=== PATIENT | male | born 1940 | race Caucasian/White ===

== ENCOUNTER 2017-09-07 11:18 | Emergency (ER) | payer OTHER ==
--- OUTSIDE RECORDS SUMMARY | 2017-09-07 11:20 | XMS REPORT ---
:1940 [email or web address] Care Team Providers Name Role Phone Corazon Dickey Provider Role Unavailable Allergies, Adverse Reactions, Alerts Substance Reaction Event Type N.K.D.A. Info Not Available Non Drug Allergy Problems Problem Type Condition Code Onset Dates Condition Status Assessment Skin lesions L98.9 Active Assessment Neck pain M54.2 Active Assessment Bilateral leg weakness R29.898 Active Problem Prostate disorder N42.9 Active Assessment Chronic constipation K59.09 Active Problem Hypertension, unspecified type I10 Active Assessment Chronic obstructive pulmonary J44.9 Active disease, unspecified COPD type Problem Bilateral leg weakness R29.898 Active Problem Ulcer L98.499 Active Problem Skin lesions L98.9 Active Problem Neck pain M54.2 Active Problem Seasonal allergies J30.2 Active Problem Elevated prostate specific antigen R97.2 Active (PSA) Assessment Hypertension, unspecified type I10 Active Problem Erectile dysfunction F52.21 Active Assessment Hyperlipidemia, unspecified E78.5 Active hyperlipidemia type Problem Hyperlipidemia, unspecified E78.5 Active hyperlipidemia type Problem Chronic constipation K59.09 Active Problem Sinus problem J34.9 Active Problem Chronic obstructive pulmonary J44.9 Active disease, unspecified COPD type Problem Nicotine dependence F17.200 Active Problem Spermatocele of epididymis, 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 Calcium NDC 0 500 MG Orally Active 1 tablet [place] [address]-58 200 MCG/ACT Active 1 puff Furoate Inhalation Once a day MiraLax ND 12578980882 - Orally Once a Active 1 packet day mixed with 8 ounces of fluid Simvastatin ND 01465475110 20 MG Orally Active 1 tablet Once a day in the evening Antacid ND 10736537659 500 MG Orally Active 1 tablet Once a day Low-Dose NDC 0 Active not Aspirin defined Lisinopril ND 60245982004 5 MG Orally Active 2 tablets Once a day Breo Ellipta [facility] 11672980721 200-25 MCG/INH August 22, Nov 20, Active 1 puff Inhalation Once 2017 2017 a day Ventolin HFA [facility] 85465221436 108 (90 Base) Active 2 puffs as MCG/ACT needed Inhalation every 6 hrs Linzess [facility] 43541314460 290 MCG Orally Active 1 capsule Once a day ProAir [facility] 71190706957 108 (90 Base) Active 2 puffs as RespiClick MCG/ACT needed Inhalation every 6 hrs Loratadine [facility] 98575769290 10 MG Orally Active 1 tablet Once a day Nasal [place] [facility] 07151508549 0.05 % Nasally Active 2 drops in Twice a day each nostril as needed Results No Known Results Summary Purpose eClinicalWorks Submission
[2017-09-07 12:12] LABS: Absolute Lymphocytes (CBC) 1.6 K/uL (0.7-4.9); Absolute Monocytes 0.4 K/uL (0.1-1.3); Absolute Neutrophil 2.9 K/uL (1.8-8.0); Basophils % 0.6 % (0-1.3); Eosinophils % 2.2 % (0-4.4); Hematocrit 43.7 % (39.6-49.0); Lymphocytes % 32.2 % (15.3-44.8); MCH 33.7 pg (27.0-35.0); MCV 99.4 fL (80-100); MPV 8.2 fL (7.6-11.3); Monocytes % 7.8 % (3.3-12.3)
[2017-09-07 12:29] LABS: Albumin 3.9 g/dL (3.2-5.5); Bilirubin Direct 0.2 mg/dL (0-0.2); Bilirubin Total 1.1 mg/dL (0.3-1.2); Magnesium 1.9 mg/dL (1.8-2.5); Protein, Total 7.7 g/dL (6.0-8.3)
[2017-09-07] MEDS ORDERED: ALBUTEROL 2.5 MG/3 ML NEB SOL ONE (12:29)
[2017-09-07] MEDS ORDERED: NA CHLORIDE 0.9% 1,000 ML ONE (12:29)
[2017-09-07] MEDS ORDERED: IPRATROPIUM BROM 0.5MG/2.5ML ONE (12:29)
[2017-09-07] MEDS ORDERED: METHYLPREDNISOLONE 125 MG INJ ONE (12:29)
[2017-09-07] MEDS ORDERED: Levofloxacin500mg IV 500 MG/100 ML BAG IV ONE (12:29)
--- NOTE | 2017-09-07 12:29 | RAD REPORT ---
EXAM DESCRIPTION: RAD - Chest Single View - 09/07/2017 12:11 pm CLINICAL HISTORY: Coughing blood COMPARISON: 10/24/2016 FINDINGS: Portable technique limits examination quality. Linear opacities present left lung base with mild elevated left hemidiaphragm. The lungs are grossly clear of acute infiltrate. The heart is normal in size. No displaced fractures. IMPRESSION: Subsegmental atelectasis left lung base with elevated left hemidiaphragm.
[2017-09-07] MEDS ORDERED: CEFTRIAXONE/SWI 1gm 1 GM/10 ML SYR ONE (12:30)
[2017-09-07 12:32] LABS: Protime INR 0.94
[2017-09-07 12:33] LABS: CKMB Creatine Kinase MB 3.1 ng/ml (0.3-4.0)
--- NOTE | 2017-09-07 14:00 | EDPHYS ---
Physician Documentation [facility] Name: Flakito Garcia Age: 77 yrs Sex: Male : 1940 Arrival Date: 09/07/2017 Time: 11:16 Bed 13 Private MD: ED Physician Shay Wall HPI: 09/07 13:55 This 77 yrs old Male presents to ER via EMS with complaints of Productive deandre Cough. 13:55 The patient or guardian reports cough, difficulty breathing. Onset: The deandre symptoms/episode began/occurred 1 day(s) ago. Severity of symptoms: At their worst the symptoms were moderate. Modifying factors: The symptoms are alleviated by nothing. Associated signs and symptoms: The patient has no apparent associated signs or symptoms. The patient has not experienced similar symptoms in the past. Historical: - Allergies: 11:22 No Known Allergies; aj - Home Meds: 11:22 Albuterol Inhl [Active]; budesonide inhalation [Active]; Calcium Carbonate Oral aj [Active]; cholecalciferol (vitamin D3) miscellaneous [Active]; fluticasone nasal [Active]; linaclotide Oral [Active]; lisinopril Oral [Active]; rivaroxaban Oral [Active]; - PMHx: 11:22 COPD; Hypertension; aj - PSHx: 11:22 hip - left; aj - Immunization history:: Adult Immunizations up to date. - Social history:: Smoking status: Patient/guardian denies using tobacco. - Family history:: not pertinent. ROS: 13:55 Constitutional: Negative for fever, chills, and weight loss, Eyes: Negative for injury, deander pain, redness, and discharge, ENT: Negative for injury, pain, and discharge, Neck: Negative for injury, pain, and swelling, Cardiovascular: Negative for chest pain, palpitations, and edema, Abdomen/GI: Negative for abdominal pain, nausea, vomiting, diarrhea, and constipation, Back: Negative for injury and pain, : Negative for injury, bleeding, discharge, and swelling, MS/Extremity: Negative for injury and deformity, Skin: Negative for injury, rash, and discoloration, Neuro: Negative for headache, weakness, numbness, tingling, and seizure, Psych: Negative for depression, anxiety, suicide ideation, homicidal ideation, and hallucinations, Allergy/Immunology: Negative for hives, rash, and allergies, Endocrine: Negative for neck swelling, polydipsia, polyuria, polyphagia, and marked weight changes, Hematologic/Lymphatic: Negative for swollen nodes, abnormal bleeding, and unusual bruising. 13:55 Respiratory: Positive for cough, "sounds productive". Exam: 13:56 Constitutional: This is a well developed, well nourished patient who is awake, alert, deandre and in no acute distress. Head/Face: Normocephalic, atraumatic. Eyes: Pupils equal round and reactive to light, extra-ocular motions intact. Lids and lashes normal. Conjunctiva and sclera are non-icteric and not injected. Cornea within normal limits. Periorbital areas with no swelling, redness, or edema. ENT: Nares patent. No nasal discharge, no septal abnormalities noted. Tympanic membranes are normal and external auditory canals are clear. Oropharynx with no redness, swelling, or masses, exudates, or evidence of obstruction, uvula midline. Mucous membranes moist. Neck: Trachea midline, no thyromegaly or masses palpated, and no cervical lymphadenopathy. Supple, full range of motion without nuchal rigidity, or vertebral point tenderness. No Meningismus. Chest/axilla: Normal chest wall appearance and motion. Nontender with no deformity. No lesions are appreciated. Cardiovascular: Regular rate and rhythm with a normal S1 and S2. No gallops, murmurs, or rubs. Normal PMI, no JVD. No pulse deficits. Abdomen/GI: Soft, non-tender, with normal bowel sounds. No distension or tympany. No guarding or rebound. No evidence of tenderness throughout. Back: No spinal tenderness. No costovertebral tenderness. Full range of motion. Male : Normal genitalia with no discharge or lesions. Skin: Warm, dry with normal turgor. Normal color with no rashes, no lesions, and no evidence of cellulitis. MS/ Extremity: Pulses equal, no cyanosis. Neurovascular intact. Full, normal range of motion. Neuro: Awake and alert, GCS 15, oriented to person, place, time, and situation. Cranial nerves II-XII grossly intact. Motor strength 5/5 in all extremities. Sensory grossly intact. Cerebellar exam normal. Normal gait. Psych: Awake, alert, with orientation to person, place and time. Behavior, mood, and affect are within normal limits. 13:56 Respiratory: mild respiratory distress is noted, Respirations: normal, Breath sounds: decreased breath sounds, rhonchi, that are mild. Vital Signs: 11:22 BP 170 / 100; Pulse 88; Resp 20; Temp 98.6; Pulse Ox 93% on R/A; Weight 102.06 kg; aj Height 6 ft. 6 in. (198.12 cm); 12:47 BP 154 / 94; Pulse 68; Resp 20; Pulse Ox 100% on Nebulizer Mask; aj 15:42 BP 152 / 92; Pulse 69; Resp 22; Pulse Ox 93% on R/A; aj 11:22 Body Mass Index 26.00 (102.06 kg, 198.12 cm) aj MDM: 11:39 Patient medically screened. [facility] 13:56 Data reviewed: vital signs, nurses notes, lab test result(s), EKG, radiologic studies, [facility] CT scan, plain films. 09/07 11:44 Order name: Basic Metabolic Panel [facility] 09/07 11:44 Order name: BNP; Complete Time: 13:[address] [facility] 09/07 11:44 Order name: CBC with Diff; Complete Time: 13:[address] [facility] 09/07 11:44 Order name: Ckmb; Complete Time: 13:[address] [facility] 09/07 11:44 Order name: CPK; Complete Time: 13:[address] [facility] 09/07 11:44 Order name: LFT's; Complete Time: 13:[address] [facility] 09/07 11:44 Order name: Magnesium; Complete Time: 13:[address] [facility] 09/07 11:44 Order name: PT-INR; Complete Time: 13:[address] [facility] 09/07 11:44 Order name: Ptt, Activated; Complete Time: 13:[address] [facility] 09/07 11:44 Order name: Troponin (emerg Dept Use Only); Complete Time: 13:[address] [facility] 09/07 11:44 Order name: Blood Culture Adult (2) [facility] 09/07 11:44 Order name: Procalcitonin; Complete Time: 13:[address] [facility] 09/07 11:44 Order name: Lactate; Complete Time: 13:[address] [facility] 09/07 11:44 Order name: Urine Culture [facility] 09/07 11:44 Order name: XRAY Chest (1 view); Complete Time: 13:[address] [facility] 09/07 11:44 Order name: EKG; Complete Time: 11:[address] [facility] 09/07 11:44 Order name: Cardiac monitoring; Complete Time: 12:[address] [facility] 09/07 11:44 Order name: EKG - Nurse/Tech; Complete Time: 12:[address] [facility] 09/07 11:45 Order name: Basic Metabolic Panel; Complete Time: 13:52 [facility] 09/07 13:46 Order name: CT Chest For PE Angio 09/07 14:05 Order name: CONS Physician Consult [facility] 09/07 15:04 Order name: CT [facility] 09/07 11:44 Order name: IV Saline Lock; Complete Time: 12:[address] [facility] 09/07 11:44 Order name: Labs collected and sent; Complete Time: 12:[address] [facility] 09/07 11:44 Order name: O2 Per Protocol; Complete Time: 12:[address] [facility] 09/07 11:44 Order name: O2 Sat Monitoring; Complete Time: 12:[address] [facility] Administered Medications: 12:12 CANCELLED (Inappropriate at this time): Nicotine 21 mg/24 hr 1 patches Transdermal once aj 12:44 Drug: Rocephin - (cefTRIAXone) 1 grams Route: IVPB; Infused Over: 30 mins; Site: right aj antecubital; 12:45 Drug: SOLU-Medrol 125 mg Route: IVP; Site: right antecubital; aj 13:00 Follow up: Response: No adverse reaction aj 12:45 Drug: Albuterol - atroVENT (3:1) (2.5 mg - 0.5 mg) 3 ml Route: Nebulizer; aj 13:01 Follow up: Response: No adverse reaction aj 12:45 Drug: levofloxacin 500 mg Volume: 100 ml; Route: IVPB; Infused Over: 60 mins; Site: aj right antecubital; 12:46 Drug: NS 0.9% 500 ml Route: IV; Rate: bolus; Site: right antecubital; aj 12:46 Drug: NS 0.9% 1000 ml Route: IV; Rate: 125 ml/hr; Site: right antecubital; aj 14:34 Drug: ProTONIX 40 mg Route: IVP; Site: right antecubital; aj 15:05 Follow up: Response: No adverse reaction aj Disposition: 09/07/17 13:59 Hospitalization ordered by Robert West for Inpatient Admission. Preliminary diagnosis are Chronic obstructive pulmonary disease with (acute) exacerbation, Hemoptysis. - Bed requested for Telemetry/MedSurg (Inpatient). - Status is Inpatient Admission. aj - Condition is Fair. - Problem is new. - Symptoms have improved. UTI on Admission? No Signatures: Dispatcher [employer] Josefa Yang RN Shay Loya MD MD cha Corrections: (The following items were deleted from the chart) 12:12 12:12 Nicotine Patch 21 mg/24 hr 1 patches Transdermal once ordered. aj aj 15:52 13:59 Hospitalization Ordered by Robert West DO for Inpatient Admission. Preliminary aj diagnosis is Chronic obstructive pulmonary disease with (acute) exacerbation; Hemoptysis. Bed requested for Telemetry/MedSurg (Inpatient). Status is Inpatient Admission. Condition is Fair. Problem is new. Symptoms have improved. UTI on Admission? No. denadre
--- NOTE | 2017-09-07 14:00 | ER ---
Nurse's Notes [facility] Name: Flakito Garcia Age: 77 yrs Sex: Male : 1940 Arrival Date: 09/07/2017 Time: 11:16 Bed 13 Private MD: Diagnosis: Chronic obstructive pulmonary disease with (acute) exacerbation;Hemoptysis Presentation: 09/07 11:17 Presenting complaint: Patient states: Coughing up blood since last night. Patient aj started on new COPD inhaler 3 days ago. Transition of care: patient was not received from another setting of care. Onset of symptoms was September 07, 2017. Risk Assessment: Do you want to hurt yourself or someone else? Patient reports no desire to harm self or others. Initial Sepsis Screen: Does the patient meet any 2 criteria? No. Patient's initial sepsis screen is negative. Does the patient have a suspected source of infection? No. Patient's initial sepsis screen is negative. Care prior to arrival: None. 11:17 Method Of Arrival: EMS: [facility] 11:17 Acuity: JUWAN 3 aj Triage Assessment: 11:22 General: Appears in no apparent distress. comfortable, Behavior is calm, cooperative, aj appropriate for age. Pain: Denies pain. Neuro: Level of Consciousness is awake, alert, obeys commands, Oriented to person, place, time, situation, Appropriate for age. Respiratory: Reports cough that is productive, Airway is patent Respiratory effort is even, unlabored, Respiratory pattern is regular, symmetrical, Onset: The symptoms/episode began/occurred yesterday, the patient has mild shortness of breath. Derm: Skin is intact, is healthy with good turgor, Skin is pink, warm \T\ dry. normal. Historical: - Allergies: 11:22 No Known Allergies; aj - Home Meds: 11:22 Albuterol Inhl [Active]; budesonide inhalation [Active]; Calcium Carbonate Oral aj [Active]; cholecalciferol (vitamin D3) miscellaneous [Active]; fluticasone nasal [Active]; linaclotide Oral [Active]; lisinopril Oral [Active]; rivaroxaban Oral [Active]; - PMHx: 11: COPD; Hypertension; aj - PSHx: : hip - left; aj - Immunization history:: Adult Immunizations up to date. - Social history:: Smoking status: Patient/guardian denies using tobacco. - Family history:: not pertinent. Screenin:47 Abuse screen: Denies threats or abuse. Denies injuries from another. Nutritional aj screening: No deficits noted. Tuberculosis screening: No symptoms or risk factors identified. Fall Risk None identified. Assessment: 12:49 Reassessment: see triage. aj 15:42 Reassessment: Patient requested to leave AMA. Informed of risk of . aj Vital Signs: 11:22 BP 170 / 100; Pulse 88; Resp 20; Temp 98.6; Pulse Ox 93% on R/A; Weight 102.06 kg; aj Height 6 ft. 6 in. (198.12 cm); 12:47 BP 154 / 94; Pulse 68; Resp 20; Pulse Ox 100% on Nebulizer Mask; aj 15:42 BP 152 / 92; Pulse 69; Resp 22; Pulse Ox 93% on R/A; aj 11:22 Body Mass Index 26.00 (102.06 kg, 198.12 cm) ED Course: 11:16 Patient arrived in ED. aj 11:19 Triage completed. aj 11:22 Arm band placed on left wrist. Patient placed in an exam room, on a stretcher. aj 11:39 Shay Wall MD is Attending Physician. deandre 12:09 Josefa Harper RN is Primary Nurse. aj 12:10 X-ray completed. Portable x-ray completed in exam room. Patient tolerated procedure ml well. 12:11 XRAY Chest (1 view) In Process Unspecified. EDMS 12:47 Patient has correct armband on for positive identification. aj 12:47 Inserted saline lock: 20 gauge in right antecubital area, using aseptic technique. aj Blood collected. 13:[address] 2 13:58 Robert West DO is Hospitalizing Provider. [facility] 13:59 CT completed. Patient tolerated procedure well. Patient moved back from CT. vm2 14:05 CT Chest For PE Angio In Process Unspecified. EDMS 14:[address] 14:55 CT completed. Patient tolerated procedure well. Patient moved back from CT. 15:42 No provider procedures requiring assistance completed. IV discontinued, intact, aj bleeding controlled, No redness/swelling at site. Pressure dressing applied. Administered Medications: 12:12 CANCELLED (Inappropriate at this time): Nicotine 21 mg/24 hr 1 patches Transdermal once aj 12:44 Drug: Rocephin - (cefTRIAXone) 1 grams Route: IVPB; Infused Over: 30 mins; Site: right aj antecubital; 12:45 Drug: SOLU-Medrol 125 mg Route: IVP; Site: right antecubital; aj 13:00 Follow up: Response: No adverse reaction aj 12:45 Drug: Albuterol - atroVENT (3:1) (2.5 mg - 0.5 mg) 3 ml Route: Nebulizer; aj 13:01 Follow up: Response: No adverse reaction aj 12:45 Drug: levofloxacin 500 mg Volume: 100 ml; Route: IVPB; Infused Over: 60 mins; Site: aj right antecubital; 12:46 Drug: NS 0.9% 500 ml Route: IV; Rate: bolus; Site: right antecubital; aj 12:46 Drug: NS 0.9% 1000 ml Route: IV; Rate: 125 ml/hr; Site: right antecubital; aj 14:34 Drug: ProTONIX 40 mg Route: IVP; Site: right antecubital; aj 15:05 Follow up: Response: No adverse reaction aj Outcome: 13:59 Decision to Hospitalize by Provider. deandre 15:42 AMA AMA form signed aj 15:42 unknown 15:42 Instructed on Risks of leaving AMA 15:52 Patient left the ED. aj Signatures: Dispatcher [employer] Josefa Yang RN RN aj Anderson, Corey, MD MD cha Hagler, Sky Bingham, Barbara Box [facility]
--- NOTE | 2017-09-07 14:15 | RAD REPORT ---
EXAM DESCRIPTION: CT - Chest For Pe Angio - 09/07/2017 2:04 pm CLINICAL HISTORY: Chest pain. Hemoptysis. COMPARISON: 07/16/2007 TECHNIQUE: CT angiogram of the pulmonary arteries was performed with MIP. All CT scans are performed using dose optimization technique as appropriate and may include automated exposure control or mA/KV adjustment according to patient size. FINDINGS: No evidence of pulmonary thromboembolism. No acute aortic finding demonstrated. Mild COPD is present. No focal nodule, mass or infiltrate is seen. No significant pericardial or pleural fluid. No concerning bony finding. Small hiatal hernia. IMPRESSION: No evidence of pulmonary thromboembolism. Mild diffuse COPD.
[2017-09-07] MEDS ORDERED: PANTOPRAZOLE 40 MG INJ ONE (14:28)
--- NOTE | 2017-09-07 15:03 | RAD REPORT ---
EXAM DESCRIPTION: CT - Soft Tissue Neck Wo Contr CLINICAL HISTORY: Hemoptysis. COMPARISON: None. TECHNIQUE All CT scans are performed using dose optimization technique as appropriate and may includ e automated exposure control or mA/KV adjustment according to patient size. FINDINGS: There is significant limitation to the study due to lack of IV contrast material. Nasopharyngeal airway is patent. Fossa of Rosenmuller are normal. Tongue base is grossly unremarkable . Vallecula and piriform sinuses appear well aerated. Slight asymmetry is seen involving the false co rds. No bulky adenopathy suspected in the neck. Prominent multilevel cervical degenerative changes. IMPRESSION: Limited noncontrast study is submitted without acute or aggressive neck finding delineat ed.
[2017-09-07 15:56] VITALS: TEMP 98.6
[2017-09-07 15:58] VITALS: BP 152/92; O2SAT 93
--- NOTE | 2017-09-07 17:38 | EKG ---
Test Date: 2017-09-07 Test Time: 11:53:08 Poultry Slaughterer: CRISTOBAL MEASUREMENT RESULTS: Intervals: Rate: 77 VA: 198 QRSD: 88 QT: 368 QTc: 416 [place]: P: 75 VA: 198 QRS: 45 T: 70 INTERPRETIVE STATEMENTS: Normal sinus rhythm Normal ECG Compared to ECG 10/24/2016 17:00:04 No significant changes Electronically Signed On 09-07-17 17:36:47 CDT by Nirav Rg
== END 2017-09-07 15:52 | disposition left against medical advice (07) ==
LOC: ER 11:18 → OBSVTOIN 14:02 → INTOOBSV 14:02 → ERHOLD 14:02 → UNDOADMOB 14:02 → ER 15:52 → UNDODISOB 15:52
DX: J44.1 Chronic obstructive pulmonary disease with (acute) exacerbation (principal); I10 Essential (primary) hypertension
CPT/HCPCS: 36415; 70490; 71045; 71275; 80048; 80076; 82550; 82553; 83605; 83735; 83880; 84145; 84484; 85025; 85610; 85730; 87040 ×2; 93005; 94640; 96374; 96375; 99285; C9113; G0378 ×2; J0696; J2930; J7030; Q9967

== ENCOUNTER 2017-09-08 06:17 | Emergency (ER) | payer OTHER ==
--- OUTSIDE RECORDS SUMMARY | 2017-09-08 06:20 | XMS REPORT ---
:1940 [facility] Care Team Providers Name Role Phone Corazon [...] Status Dosage System Date Date Symbicort ND 86260671876 160-4.5 MCG/ACT Active INHALE TWO (2) PUFF(S) BY MOUTH TWICE A DAY. Calcium NDC 0 500 MG Orally Active 1 tablet [place]ate [place] [address]-55 200 MCG/ACT Active 1 puff Furoate Inhalation Once a day MiraLax ND 50265527846 - Orally Once a Active 1 packet day mixed with 8 ounces of fluid Simvastatin ND 93996894951 20 MG Orally Active 1 tablet Once a day in the evening Antacid ND 12614278146 500 MG Orally Active 1 tablet Once a day Low-Dose NDC 0 Active not Aspirin defined Lisinopril ND 83029788129 5 MG Orally Active 2 tablets Once a day Breo Ellipta [facility] 27073513600 200-25 MCG/INH August 22, Nov 20, Active 1 puff Inhalation Once 2017 2017 a day Ventolin HFA [facility] 70037630326 108 (90 Base) Active 2 puffs as MCG/ACT needed Inhalation every 6 hrs Linzess [facility] 09019986888 290 MCG Orally Active 1 capsule Once a day ProAir [facility] 75238238981 108 (90 Base) Active 2 puffs as RespiClick MCG/ACT needed Inhalation every 6 hrs Loratadine [facility] 10749976963 10 MG Orally Active 1 tablet Once a day Nasal [place] [facility] 02175295273 0.05 % Nasally Active 2 drops in Twice a day each nostril as needed Results No Known Results Summary Purpose eClinicalWorks Submission
[2017-09-08 06:59] LABS: Absolute Lymphocytes (CBC) 1.4 K/uL (0.7-4.9); Absolute Monocytes 0.5 K/uL (0.1-1.3); Absolute Neutrophil 4.4 K/uL (1.8-8.0); Basophils % 0.2 % (0-1.3); Eosinophils % 0.1 % (0-4.4); Hematocrit 39.2 % (39.6-49.0); Lymphocytes % 21.8 % (15.3-44.8); MPV 7.7 fL (7.6-11.3); Monocytes % 8.5 % (3.3-12.3)
[2017-09-08 07:06] LABS: Protime INR 0.97
--- NOTE | 2017-09-08 07:35 | ER ---
Nurse's Notes [facility] Name: Flakito Garcia Age: 77 yrs Sex: Male : 1940 Arrival Date: 09/08/2017 Time: 06:23 Bed 4 Private MD: Curtis Montano R Diagnosis: Chronic obstructive pulmonary disease, unspecified;Hemoptysis Presentation: 09/08 06:18 Presenting complaint: EMS states: Patient reported feeling short of breath and started ea coughing up blood at 5:30 this AM, patient reports coming to the ER yesterday for the same issue. EMS reported pt O2 sats 84% upon arrival, pt placed on 4 L n/c. Transition of care: patient was not received from another setting of care. Onset of symptoms was September 08, 2017. Risk Assessment: Do you want to hurt yourself or someone else? Patient reports no desire to harm self or others. Initial Sepsis Screen: Does the patient meet any 2 criteria? No. Patient's initial sepsis screen is negative. Does the patient have a suspected source of infection? No. Patient's initial sepsis screen is negative. Care prior to arrival: O2 at 4 L per n/c. 06:18 Method Of Arrival: EMS: [facility] ea 06:18 Acuity: JUWAN 3 ea Triage Assessment: 06:30 General: Appears uncomfortable, Behavior is calm, cooperative, appropriate for age. ea Pain: Denies pain. EENT: No signs and/or symptoms were reported regarding the EENT system. Neuro: Level of Consciousness is awake, alert, obeys commands, Oriented to person, place, time. Cardiovascular: Heart tones S1 S2 present Patient's skin is warm and dry. Respiratory: Airway is patent Respiratory effort is even, unlabored, Respiratory pattern is regular, symmetrical, Breath sounds are coarse bilaterally. Parent/caregiver reports the patient having cough that is productive, hacking, persistent pt reports coughing bloody tinged mucus. GI: Abdomen is non-distended, Bowel sounds present X 4 quads. : No signs and/or symptoms were reported regarding the genitourinary system. Derm: Skin is pink, warm \T\ dry. Musculoskeletal: No signs and/or symptoms reported regarding the musculoskeletal system. Historical: - Home Meds: 06:30 Albuterol Inhl [Active]; budesonide inhalation [Active]; fluticasone nasal [Active]; ea rivaroxaban Oral [Active]; lisinopril Oral [Active]; linaclotide Oral [Active]; cholecalciferol (vitamin D3) miscellaneous [Active]; Calcium Carbonate Oral [Active]; - PMHx: 06:30 COPD; Hypertension; ea - PSHx: 06:30 hip - left; ea - Immunization history:: Adult Immunizations up to date. - Social history:: Smoking status: Patient uses tobacco products, smokes one pack cigarettes per day. - Ebola Screening: : No symptoms or risks identified at this time. Screenin:33 Abuse screen: Denies threats or abuse. Nutritional screening: No deficits noted. Fall ea Risk None identified. 07:26 Tuberculosis screening: No symptoms or risk factors identified. tw2 Assessment: 07:25 Reassessment: Patient appears in no apparent distress at this time. No changes from tw2 previously documented assessment. Patient and/or family updated on plan of care and expected duration. Pain level reassessed. Patient is alert, oriented x 3, equal unlabored respirations, skin warm/dry/pink. 08:46 Reassessment: Patient appears in no apparent distress at this time. No changes from tw2 previously documented assessment. Patient and/or family updated on plan of care and expected duration. Pain level reassessed. Patient is alert, oriented x 3, equal unlabored respirations, skin warm/dry/pink. 09:44 Reassessment: Patient appears in no apparent distress at this time. No changes from tw2 previously documented assessment. Patient and/or family updated on plan of care and expected duration. Pain level reassessed. Patient is alert, oriented x 3, equal unlabored respirations, skin warm/dry/pink. Vital Signs: 06:16 BP 156 / 101; Pulse 85; Resp 18; Temp 98.4; Pulse Ox 97% on R/A; Weight 102.06 kg; ea Height 6 ft. 6 in. (198.12 cm); 06:37 BP 138 / 87; Pulse 67; Resp 18 S; Pulse Ox 97% on Nebulizer Mask; ea 07:25 BP 144 / 86; Pulse 69; Resp 18; Pulse Ox 96% on R/A; tw2 08:46 BP 137 / 75; Pulse 82; Resp 19; Pulse Ox 98% on R/A; tw2 09:44 BP 138 / 84; Pulse 67; Resp 11; Pulse Ox 99% on R/A; tw2 06:16 Body Mass Index 26.00 (102.06 kg, 198.12 cm) ea ED Course: 06:23 Patient arrived in ED. rg2 06:25 Maryan Whitaker FNP-C [facility]. snw 06:25 Spike Bennett MD is Attending Physician. snw 06:28 Triage completed. ea 06:28 Curtis Montano MD is Private Physician. ds1 06:34 Patient has correct armband on for positive identification. Bed in low position. Call ea light in reach. Side rails up X2. 06:34 Arm band placed on right wrist. ea 06:35 Inserted saline lock: 20 gauge in right antecubital area, using aseptic technique. ea Blood collected. 07:25 Luann Rodríguez, RN is Primary Nurse. tw2 07:26 No provider procedures requiring assistance completed. tw2 07:34 Robert West DO is Hospitalizing Provider. snw 09:30 Curtis Montano MD is Referral Physician. snw 09:30 Jhoana Lang MD is Referral Physician. snw 09:30 Ramy Sahni MD is Referral Physician. snw 09:49 IV discontinued, intact, bleeding controlled, No redness/swelling at site. Pressure tw2 dressing applied. Administered Medications: No medications were administered Outcome: 07:35 Decision to Hospitalize by Provider. snw 09:32 Discharge ordered by . snw 09:49 Discharged to home ambulatory, with friend. tw2 09:49 Condition: stable 09:49 Discharge instructions given to patient, friend, Instructed on discharge instructions, follow up and referral plans. medication usage, Demonstrated understanding of instructions, follow-up care, medications, Prescriptions given X 1. 09:50 Patient left the ED. tw2 Signatures: Tavares Calvo rg2 Maryan Whitaker FNP-C [employer]OR [employer]UM WORKER-Csnw Sunita Panchal ds1 Luann Rodríguez, CINDY RN tw2 Marbella Currie RN RN ea
--- NOTE | 2017-09-08 07:35 | EDPHYS ---
Physician Documentation [facility] Name: Flakito Garcia Age: 77 yrs Sex: Male : 1940 Arrival Date: 09/08/2017 Time: 06:23 Bed 4 Private MD: Curtis Montano R ED Physician Spike Bennett HPI: 09/08 06:38 This 77 yrs old Male presents to ER via EMS with complaints of Coughing up snw Blood. 06:38 The patient has shortness of breath at rest. Onset: The symptoms/episode began/occurred snw suddenly, yesterday, and became persistent. Duration: The symptoms are intermittent. Associated signs and symptoms: Pertinent positives: hemoptysis. Severity of symptoms: At their worst the symptoms were moderate. The patient has experienced a previous episode, yesterday. The patient has been recently seen by a physician: The patient has been recently seen at the [facility] Emergency Department, yesterday, The patient has been recently been admitted at [facility], pt left AMA. Historical: - Home Meds: 06:30 Albuterol Inhl [Active]; budesonide inhalation [Active]; fluticasone nasal [Active]; ea rivaroxaban Oral [Active]; lisinopril Oral [Active]; linaclotide Oral [Active]; cholecalciferol (vitamin D3) miscellaneous [Active]; Calcium Carbonate Oral [Active]; - PMHx: 06:30 COPD; Hypertension; ea - PSHx: 06:30 hip - left; ea - Immunization history:: Adult Immunizations up to date. - Social history:: Smoking status: Patient uses tobacco products, smokes one pack cigarettes per day. - Ebola Screening: : No symptoms or risks identified at this time. ROS: 06:39 Constitutional: Negative for fever, chills, and weight loss, Eyes: Negative for injury, snw pain, redness, and discharge, ENT: Negative for injury, pain, and discharge, Neck: Negative for injury, pain, and swelling, Cardiovascular: Negative for chest pain, palpitations, and edema, Abdomen/GI: Negative for abdominal pain, nausea, vomiting, diarrhea, and constipation, Back: Negative for injury and pain, : Negative for injury, bleeding, discharge, and swelling, MS/Extremity: Negative for injury and deformity, Skin: Negative for injury, rash, and discoloration, Neuro: Negative for headache, weakness, numbness, tingling, and seizure. 06:39 Respiratory: Positive for cough, hemoptysis, shortness of breath, at rest. Exam: 06:35 Constitutional: This is a well developed, well nourished patient who is awake, alert, snw and in no acute distress. Head/Face: Normocephalic, atraumatic. Eyes: Pupils equal round and reactive to light, extra-ocular motions intact. Lids and lashes normal. Conjunctiva and sclera are non-icteric and not injected. Cornea within normal limits. Periorbital areas with no swelling, redness, or edema. ENT: Nares patent. No nasal discharge, no septal abnormalities noted. Tympanic membranes are normal and external auditory canals are clear. Oropharynx with no redness, swelling, or masses, exudates, or evidence of obstruction, uvula midline. Mucous membranes moist. Neck: Trachea midline, no thyromegaly or masses palpated, and no cervical lymphadenopathy. Supple, full range of motion without nuchal rigidity, or vertebral point tenderness. No Meningismus. Chest/axilla: Normal chest wall appearance and motion. Nontender with no deformity. No lesions are appreciated. Cardiovascular: Regular rate and rhythm with a normal S1 and S2. No gallops, murmurs, or rubs. Normal PMI, no JVD. No pulse deficits. Respiratory: Lungs have equal breath sounds bilaterally, clear to auscultation and percussion. No rales, rhonchi or wheezes noted. No increased work of breathing, no retractions or nasal flaring. Abdomen/GI: Soft, non-tender, with normal bowel sounds. No distension or tympany. No guarding or rebound. No evidence of tenderness throughout. Back: No spinal tenderness. No costovertebral tenderness. Full range of motion. Skin: Warm, dry with normal turgor. Normal color with no rashes, no lesions, and no evidence of cellulitis. MS/ Extremity: Pulses equal, no cyanosis. Neurovascular intact. Full, normal range of motion. Neuro: Awake and alert, GCS 15, oriented to person, place, time, and situation. Cranial nerves II-XII grossly intact. Motor strength 5/5 in all extremities. Sensory grossly intact. Cerebellar exam normal. Normal gait. Psych: Awake, alert, with orientation to person, place and time. Behavior, mood, and affect are within normal limits. Vital Signs: 06:16 BP 156 / 101; Pulse 85; Resp 18; Temp 98.4; Pulse Ox 97% on R/A; Weight 102.06 kg; ea Height 6 ft. 6 in. (198.12 cm); 06:37 BP 138 / 87; Pulse 67; Resp 18 S; Pulse Ox 97% on Nebulizer Mask; ea 07:25 BP 144 / 86; Pulse 69; Resp 18; Pulse Ox 96% on R/A; tw2 08:46 BP 137 / 75; Pulse 82; Resp 19; Pulse Ox 98% on R/A; tw2 09:44 BP 138 / 84; Pulse 67; Resp 11; Pulse Ox 99% on R/A; tw2 06:16 Body Mass Index 26.00 (102.06 kg, 198.12 cm) ea MDM: 06:25 Patient medically screened. snw 06:35 Data reviewed: vital signs, nurses notes. Data interpreted: Pulse oximetry: on room air snw is 97 %. Interpretation: normal. Counseling: I had a detailed discussion with the patient and/or guardian regarding: the historical points, exam findings, and any diagnostic results supporting the discharge/admit diagnosis, the presence of at least one elevated blood pressure reading (>120/80) during this emergency department visit, lab results. 07:22 ED course: Pt left AMA yesterday. His symptoms are no worse, but they frightened him snw enough to return this morning when the symptoms returned. Pt would benefit from bronchoscopy. Will speak with Hospitalist to attempt in patient evaluation. 07:33 Physician consultation: Robert West DO was called at 07:34, was contacted at 07:34, w regarding admission, to the telemetry unit. 09:26 Special discussion: Based on the history and exam findings, there is no indication for snw further emergent testing or inpatient evaluation. I discussed with the patient/guardian the need to see the ENT specialist for further evaluation of the symptoms. I discussed with the patient/guardian the need to see the supervisor dried yeast for further evaluation of the symptoms. ED course: Dr. Kaitlyn is unable to perform bronchoscopy this weekend. No ENT coverage. Hospitalists decline hospitalization here and recommend transfer to another facility.. 09:27 ED course: pt initially consented to transfer but now states he wishes to go home and snw do this "Sunday". Counseled pt to RTED prn worsening s/s. Pt wishes to leave AMA.. 09/08 06:28 Order name: CBC with Diff; Complete Time: 07:22 snw 09/08 06:28 Order name: Chem 7; Complete Time: 07:22 snw 09/08 06:28 Order name: PT-INR; Complete Time: 07:22 snw 09/08 06:28 Order name: Ptt, Activated; Complete Time: 07:22 snw 09/08 06:28 Order name: Misc. Order: saline neb tx x 6ml; Complete Time: 06:35 snw Administered Medications: No medications were administered Disposition: 09/08/17 09:32 Discharged to Home. Impression: Chronic obstructive pulmonary disease, unspecified, Hemoptysis. - Condition is Stable. - Discharge Instructions: Chronic Obstructive Pulmonary Disease, Hemoptysis, Cough, Adult. - Prescriptions for Zithromax 500 mg Oral Tablet - take 1 tablet by ORAL route once daily for 5 days; 5 tablet. - Medication Reconciliation Form, Thank You Letter, Antibiotic Education, Prescription Opioid Use form. - Follow up: Curtis Montano MD; When: 2 - 3 days; Reason: Recheck today's complaints, Continuance of care, Re-evaluation by your physician. Follow up: Jhoana Lang MD; When: 1 - 2 days; Reason: Recheck today's complaints, Continuance of care. Follow up: Ramy Sahni MD; When: 1 - 2 days; Reason: Recheck today's complaints, Continuance of care. Addendum: 09/11/2017 14:50 Co-signature as Attending Physician, Spike Bennett MD. g s Signatures: Dispatcher [employer] EDMS Maryan Whitaker, DEPUTY SHERIFF BUILDING GUARD-C DEPUTY SHERIFF BUILDING GUARD-Csnw Luann Rodríguez RN RN tw2 Marbella Currie RN RN ea Starr, Gregory, MD MD Corrections: (The following items were deleted from the chart) 09/08 08:35 07:35 Hospitalization Ordered by Robert West DO for Observation. Preliminary snw diagnosis is Chronic obstructive pulmonary disease, unspecified; Hemoptysis. Bed requested for Telemetry/MedSurg (observation). Status is Observation. Condition is Stable. Problem is an acute exacerbation. Symptoms are unchanged. UTI on Admission? No. snw 09:50 09:32 09/08/2017 09:32 Discharged to Home. Impression: Chronic obstructive pulmonary tw2 disease, unspecified; Hemoptysis. Condition is Stable. Forms are Medication Reconciliation Form, Thank You Letter, Antibiotic Education, Prescription Opioid Use. Follow up: Curtis Montano; When: 2 - 3 days; Reason: Recheck today's complaints, Continuance of care, Re-evaluation by your physician. Follow up: Jhoana Lang; When: 1 - 2 days; Reason: Recheck today's complaints, Continuance of care. Follow up: Ramy Sahni; When: 1 - 2 days; Reason: Recheck today's complaints, Continuance of care. snw
[2017-09-08] MEDS ORDERED: LISINOPRIL 5 MG TAB PO SCH (09:00)
[2017-09-08 09:57] VITALS: BP 138/84; O2SAT 99
== END 2017-09-08 09:50 | disposition home or self-care (01) ==
LOC: ER 06:17 → ERHOLD 07:37 → UNDOADMOB 07:37
DX: J44.9 Chronic obstructive pulmonary disease, unspecified (principal); I10 Essential (primary) hypertension; Z72.0 Tobacco use
CPT/HCPCS: 36415; 80048; 85025; 85610; 85730; 99284

== ENCOUNTER 2019-06-10 00:53 | Inpatient (IN) | payer OTHER ==
--- OUTSIDE RECORDS SUMMARY | 2019-06-10 00:55 | XMS REPORT ---
:1940 [facility] Team Providers Name Role Phone Venkata Grewal Provider Role Unavailable Allergies, Adverse Reactions, Alerts Substance Reaction Event Type N.K.D.A. Info Not Available Non Drug Allergy Problems Problem Type Condition Code Onset Dates Condition Status Assessment Trochanteric bursitis of left hip M70.62 Active Assessment Sciatica, left side M54.32 Active Assessment Pain of left femur M89.8X5 Active Problem Benign prostatic hyperplasia with N40.1 Active lower urinary tract symptoms Problem Dyspepsia K30 Active Problem Skin lesions L98.9 Active Problem Prostate disorder N42.9 Active Problem Nicotine dependence F17.200 Active Problem Hypertension, unspecified type I10 Active Problem Ulcer L98.499 Active Problem Bilateral leg weakness R29.898 Active Problem Sciatica, left side M54.32 Active Problem Pain of left femur M89.8X5 Active Problem Gastritis K29.70 Active Problem Elevated prostate specific antigen R97.2 Active (PSA) Problem Trochanteric bursitis of left hip M70.62 Active Problem Spermatocele of epididymis, 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 Active unspecified Problem Hyperlipidemia, unspecified E78.5 Active hyperlipidemia type Problem Chronic constipation K59.09 Active Problem 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 Problem Erectile dysfunction, unspecified N52.9 Active erectile dysfunction type Problem Colon polyps K63.5 Active Problem Sinus problem J34.9 Active Problem Alcohol abuse F10.10 Active Problem Allergic rhinitis, seasonal J30.2 Active Problem Erectile dysfunction F52.21 Active Problem Chronic obstructive pulmonary J44.9 Active disease, unspecified COPD type Problem Seasonal allergies J30.2 Active Problem Neck pain M54.2 Active Medications Medication Code Code Instructions Start End Status Dosage System Date Date Low-Dose NDC 0 Active not Aspirin defined Simvastatin ND 00961142718 20 MG Orally Active 1 tablet Once a day in the evening ProAir ND 98551055659 108 (90 Base) Active 2 puffs as RespiClick MCG/ACT needed Inhalation every 6 hrs Cialis [facility] 86700602661 20 MG Orally as August 19Mar 17, Active 1 tablet directed 2018 2018 Antacid ND 75621817316 500 MG Orally Active 1 tablet Once a day Linzess ND 52121549213 290 MCG Orally Active 1 capsule Once a day Cabergoline ND 83666331496 0.5 MG Orally Active 1 tablet twice weekly Symbicort ND 79363115733 160-4.5 MCG/ACT Active INHALE TWO (2) PUFF(S) BY MOUTH TWICE A DAY. Tamsulosin HCl ND 52764549992 0.4 MG Orally Active 1 capsule Once a day Garlic 1500 ND 0 Active not defined Nasal [place] [facility] 38372713266 0.05 % Nasally Active 2 drops in Twice a day each nostril as needed Fluticasone [facility] [address]-62 200 MCG/ACT Active 1 puff Furoate Inhalation Once a day Lisinopril [facility] 98020173315 5 MG Orally Active 2 tablets Once a day MiraLax [facility] 54790198984 - Orally Once a Active 1 packet day mixed with 8 ounces of fluid Calcium [facility] 82313517232 500 MG Orally Active 1 tablet Carbonate Once a day Breo Ellipta ND 52809535206 200-25 MCG/INH Active 1 puff Inhalation Once a day Ventolin HFA [facility] 02970885635 108 (90 Base) Active 2 puffs as MCG/ACT needed Inhalation every 6 hrs Loratadine [facility] 85319888981 10 MG Orally Active 1 tablet Once a day Flonase ND 20614289386 50 MCG/ACT Active USE TWO (2) SPRAY(S) INTO EACH NOSTRIL ONCE A DAY. Results No Known Results Summary Purpose eClinicalWorks Submission
--- OUTSIDE RECORDS SUMMARY | 2019-06-10 00:56 | XMS REPORT ---
:1940 [facility] Team Providers Name Role Phone Randall Coreas Provider Role Unavailable Allergies, Adverse Reactions, Alerts Substance Reaction Event Type N.K.D.A. 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 Active unspecified Problem Elevated prostate specific antigen R97.2 Active (PSA) Problem Bilateral leg weakness R29.898 Active Problem Ulcer L98.499 Active Problem Gastritis K29.70 Active Problem Chronic constipation K59.09 Active Problem Erectile dysfunction, unspecified N52.9 Active erectile dysfunction type Problem Hyperlipidemia, unspecified E78.5 Active hyperlipidemia type Problem Primary osteoarthritis of right M17.11 Active knee Problem Atrophy of quadriceps femoris M62.559 Active muscle Problem Colon polyps K63.5 Active Problem Allergic rhinitis, seasonal J30.2 Active Problem 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 Active Problem Alcohol abuse F10.10 Active Problem Sciatica, left side M54.32 Active Problem 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 Problem Pain of left femur M89.8X5 Active Problem Trochanteric bursitis of left hip M70.62 Active Problem Neck pain M54.2 Active Assessment Atrophy of quadriceps femoris M62.559 Active muscle Problem Erectile dysfunction F52.21 Active Problem Sinus problem J34.9 Active Problem Seasonal allergies J30.2 Active Problem Prostate disorder N42.9 Active Problem Hypertension, unspecified type I10 Active Problem Chronic obstructive pulmonary J44.9 Active disease, unspecified COPD type Problem Skin lesions L98.9 Active Medications Medication Code Code Instructions Start End Status Dosage System Date Date MiraLax [facility] 25062751670 - Orally Once a Active 1 packet day mixed with 8 ounces of fluid Low-Dose ND 0 Active not Aspirin defined Fluticasone [facility] [address]-92 200 MCG/ACT Active 1 puff Furoate Inhalation Once a day Symbicort ND 75137951565 160-4.5 MCG/ACT Active INHALE TWO (2) PUFF(S) BY MOUTH TWICE A DAY. Tylenol [facility] [address]-87 Active not defined Breo Ellipta [facility] 86296675832 200-25 MCG/INH Active 1 puff Inhalation Once a day Linzess [facility] 99057765276 290 MCG Orally Active 1 capsule Once a day Garlic 1500 ND 0 Active not defined Loratadine [facility] 42152037623 10 MG Orally Active 1 tablet Once a day Cabergoline ND 31719150949 0.5 MG Orally Active 1 tablet twice weekly Furosemide [facility] [address]-15 Active not defined Calcium [facility] 27402185494 500 MG Orally Active 1 tablet Carbonate Once a day Flonase ND 10612870996 50 MCG/ACT Active USE TWO (2) SPRAY(S) INTO EACH NOSTRIL ONCE A DAY. ProAir [facility] 01221620767 108 (90 Base) Active 2 puffs as RespiClick MCG/ACT needed Inhalation every [address] [facility] 31530784224 5 MG Orally Active 2 tablets Once a day Antacid ND 17375415882 500 MG Orally Active 1 tablet Once a day Tamsulosin HCl ND 29556457059 0.4 MG Orally Active 1 capsule Once a day Ventolin HFA [facility] 57840201148 108 (90 Base) Active 2 puffs as MCG/ACT needed Inhalation every 6 hrs Simvastatin ND 68715243046 20 MG Orally Active 1 tablet Once a day in the evening Nasal [place] ND 63712464089 0.05 % Nasally Active 2 drops in Twice a day each nostril as needed Results No Known Results Summary Purpose eClinicalWorks Submission
[2019-06-10] MEDS ORDERED: ASPIRIN 81 MG CHEWABLE TABLET ONE (01:31)
[2019-06-10] MEDS ORDERED: NA CHLORIDE 0.9% 1,000 ML ONE (01:31)
[2019-06-10] MEDS ORDERED: THIAMINE 200 MG/2 ML INJ ONE (01:31)
[2019-06-10] MEDS ORDERED: FAMOTIDINE 20 MG/2 ML VIAL IV ONE (01:32)
[2019-06-10 01:51] LABS: Absolute Lymphocytes (CBC) 1.6 K/uL (0.7-4.9); Basophils % 0.8 % (0-1.3); Hematocrit 42.6 % (39.6-49.0); Lymphocytes % 33.8 % (15.3-44.8); MPV 8.1 fL (7.6-11.3); Protime INR 0.96; RBC Red Blood Cell Count 4.35 M/uL (4.33-5.43)
[2019-06-10 02:07] LABS: ALT/SGPT 16 U/L (12-78); AST/SGOT 19 U/L (15-37); Albumin 3.3 g/dL (3.4-5.0); Alkaline Phosphatase 78 U/L (45-117); BUN Blood Urea Nitrogen 13 mg/dL (7-18); Bicarbonate 31 mmol/L (21-32); Bilirubin Direct 0.2 mg/dL (0-0.2); Bilirubin Total 0.9 mg/dL (0.2-1.0); Glucose Level 94 mg/dL (74-106); Lipase 94 U/L (73-393); Magnesium 2.2 mg/dL (1.8-2.4); NT PRO-BNP 136 pg/mL (<450); Potassium 4.7 mmol/L (3.5-5.1); Sodium Level 137 mmol/L (136-145); Troponin (Emerg Dept Use Only) < 0.02 ng/mL (0.0-0.045)
--- NOTE | 2019-06-10 02:56 | ER ---
Nurse's Notes [facility] Name: Flakito Garcia Age: 78 yrs Sex: Male : 1940 Arrival Date: 06/10/2019 Time: 00:55 Bed 5 Private MD: Diagnosis: Weakness;Dizziness and giddiness;Essential (primary) hypertension;Chronic obstructive pulmonary disease, unspecified;Strain of muscle, fascia and tendon at neck level;Spondylolysis, cervical region;Abdominal aortic aneurysm, without rupture Presentation: 06/10 01:01 Presenting complaint: Patient states: I HAVE FOUR BEERS BEFORE GOING TO SLEEP. I WAS rv DOING FINE LAST NIGHT, BUT THEN I WOKE UP WITH SO MUCH PAIN ON BOTH MY ARMS. FEELS LIKE SUPERFICIAL BURNING PAIN AROUND MY ELBOWS. I AM ALSO DIZZY AND LIGHTHEADED BUT I MANAGED TO TRANSFER TO MY WHEELCHAIR. I FELT VERY HOT AND PAIN ALSO IN THE BACK OF THE HEAD. I FEEL WEEK. EMS states: COMPLAINING OF BODY ACHES, DIZZINESS AND LIGHTHEADEDNESS. BLOOD PRESSURE WAS HIGH AT THE TIME. HE WAS DIAPHORETIC. BGL IS 105. Transition of care: patient was not received from another setting of care. Onset of symptoms was June 09, 2019 at 22:00. Risk Assessment: Do you want to hurt yourself or someone else? Patient reports no desire to harm self or others. Initial Sepsis Screen: Does the patient meet any 2 criteria? No. Patient's initial sepsis screen is negative. Does the patient have a suspected source of infection? No. Patient's initial sepsis screen is negative. Care prior to arrival: None. 01:01 Method Of Arrival: EMS: [facility] rv 01:01 Acuity: JUWAN 3 rv Historical: - Allergies: 01:05 No Known Allergies; rv - Home Meds: 07:39 lisinopril 5 mg oral tab once daily [Active]; simvastatin 20 mg Oral tab 1 tab once jl7 daily [Active]; fluticasone nasal [Active]; - PMHx: 01:05 COPD; Hypertension; Emphysema; Bronchitis; rv - PSHx: 01:05 Appendectomy; STOMACH SX; rv - Immunization history:: Adult Immunizations up to date, Flu vaccine is up to date. - Coronavirus screen:: The patient has NOT traveled to [place] in the past 14 days. Proceed with normal triage process as indicated. The patient has NOT had contact with known/suspected case of Coronavirus? Proceed with normal triage procedures. - Social history:: Smoking status: Patient reports the use of cigarette tobacco products, smokes one pack cigarettes per day. - Family history:: not pertinent. - Ebola Screening: : No symptoms or risks identified at this time. Screenin:06 Abuse screen: Denies threats or abuse. Denies injuries from another. Nutritional rv screening: No deficits noted. Tuberculosis screening: No symptoms or risk factors identified. Fall Risk None identified. Assessment: 01:05 General: Appears in no apparent distress. comfortable, Behavior is calm, cooperative, rv Smells of. Pain: Denies pain. Neuro: Level of Consciousness is awake, alert, obeys commands, Oriented to person, place, time, situation. Cardiovascular: Patient's skin is warm and dry. Respiratory: Airway is patent Breath sounds are clear bilaterally. GI: No signs and/or symptoms were reported involving the gastrointestinal system. Derm: Skin with poor turgor. Musculoskeletal: Reports weakness in GENERAL. 03:49 Reassessment: Patient appears in no apparent distress at this time. Patient and/or rv family updated on plan of care and expected duration. Pain level reassessed. Patient is alert, oriented x 3, equal unlabored respirations, skin warm/dry/pink. DR SMITH DECIDED TO ADMIT THE PATIENT. PATIENT AGREED WITH THE PLAN OF CARE. AWAITING ADMISSION ORDERS AND ROOM ASSIGNMENT. Patient denies pain at this time. 05:23 Reassessment: Patient appears in no apparent distress at this time. Patient is alert, rv oriented x 3, equal unlabored respirations, skin warm/dry/pink. patient is asleep, comfortably on the bed. stable vital signs. updated on the waiting time. awaiting room assignment. 06:24 Reassessment: Patient appears in no apparent distress at this time. Patient and/or rv family updated on plan of care and expected duration. Pain level reassessed. Patient is alert, oriented x 3, equal unlabored respirations, skin warm/dry/pink. PATIENT HAD A BOWEL MOVEMENT. TRANSPORTED VIA WHEELCHAIR BECAUSE THE PATIENT IS TOO WEAK TO WALK. GCS 15. DENIES ANY PAIN AT THE MOMENT. Patient denies pain at this time. 07:30 Reassessment: Patient appears in no apparent distress at this time. No changes from jl7 previously documented assessment. Patient and/or family updated on plan of care and expected duration. Pain level reassessed. Patient is alert, oriented x 3, equal unlabored respirations, skin warm/dry/pink. Vital Signs: 01:00 BP 173 / 89 LA; Pulse 63; Resp 16; Temp 98.3; Pulse Ox 98% on R/A; Weight 101.15 kg; rv Height 6 ft. 6 in. (198.12 cm); Pain 0/10; 01:05 BP 157 / 97 RA; Pulse 64; Resp 16; Pulse Ox 98% ; rv 01:30 BP 145 / 88; Pulse 58; Resp 16; Pulse Ox 97% on R/A; rv 02:00 BP 153 / 93; Pulse 59; Resp 14; Pulse Ox 98% on R/A; rv 03:52 BP 154 / 84; Pulse 64; Resp 14; Pulse Ox 97% on R/A; rv 04:45 BP 130 / 65; Pulse 69; Resp 15; Pulse Ox 97% on R/A; rv 05:45 BP 143 / 85; Pulse 74; Resp 16; Pulse Ox 96% on R/A; rv 06:11 BP 155 / 99; Pulse 73; Resp 14; Temp 98(O); Pulse Ox 97% on R/A; rv 07:30 BP 157 / 87; Pulse 62; Resp 17 S; Pulse Ox 94% on R/A; jl7 01:00 Body Mass Index 25.77 (101.15 kg, 198.12 cm) rv ED Course: 00:55 Patient arrived in ED. bb 01:00 Demetrius Vasquez RN is Primary Nurse. rv 01:04 Shay Smith MD is Attending Physician. deandre 01:04 Triage completed. rv 01:05 Arm band placed on Patient placed Patient notified of wait time. rv 01:06 Patient has correct armband on for positive identification. Placed in gown. Bed in low rv position. Call light in reach. Side rails up X 1. Pulse ox on. NIBP on. 01:36 Inserted saline lock: 18 gauge in right antecubital area, using aseptic technique. rv Blood collected. BY [employer]. 02:05 XRAY Chest (1 view) In Process Unspecified. EDMS 02:46 Juan Pablo Crocker MD is Hospitalizing Provider. deandre 03:54 Head C Spine Mpr Wo Con In Process Unspecified. EDMS 03:54 CT Aorta for Dissection In Process Unspecified. EDMS 05:24 No provider procedures requiring assistance completed. rv 08:07 Patient admitted, IV remains in place. intact, No redness/swelling at site. jl7 Administered Medications: 01:35 Drug: Pepcid 20 mg Route: IVP; Site: right antecubital; rv 03:50 Follow up: Response: No adverse reaction rv 01:35 Drug: Aspirin Chewable Tablet 324 mg Route: PO; rv 03:50 Follow up: Response: No adverse reaction rv 01:35 Drug: Thiamine 100 mg Route: IV; Rate: bolus; Site: right antecubital; rv 03:51 Follow up: IV Status: Completed infusion rv 01:36 Drug: NS 0.9% 1000 ml Route: IV; Rate: 125 ml/hr; Site: right antecubital; rv Outcome: 02:54 Decision to Hospitalize by Provider. deandre 08:07 Admitted to Tele accompanied by tech, via stretcher, room 207, with chart, Report jlAnkit called to CINDY Bowling 08:07 Condition: stable 08:07 Discharge instructions given to patient, Instructed on the need for admit, Demonstrated understanding of instructions. 08:10 Patient left the ED. jl7 Signatures: Dispatcher [employer] Shay Jimenes MD MD cha Ballard, Brenda, RN RN Ilda Veras RN RN jl7 Vicente, Ronaldo, RN RN rv Corrections: (The following items were deleted from the chart) 02:16 01:00 BP 173 / 89; Pulse 63bpm; Resp 16bpm; Pulse Ox 98% RA; Temp 98.3F; 101.15 kg; rv Height 6 ft. 6 in.; BMI: 25.7; Pain 0/10; rv 02:35 02:33 BP 123 / 72; Pulse 104bpm; Resp 19bpm; Pulse Ox 100% RA; Pain 0/10; rv rv
--- NOTE | 2019-06-10 02:57 | EDPHYS ---
Physician Documentation [facility] Name: Flakito Garcia Age: 78 yrs Sex: Male : 1940 Arrival Date: 06/10/2019 Time: 00:55 Bed 5 Private MD: ED Physician Shay Wall HPI: 06/10 01:23 This 78 yrs old Male presents to ER via EMS with complaints of Vertigo. deandre 01:23 The patient or guardian complains of pain, that is acute. The complaints affect the deandre right bicep, right antecubital area, right tricep and right elbow, left antecubital area, dorsal aspect of left forearm, left elbow and palmar aspect of left forearm. Context: The problem was sustained at home. Onset: The symptoms/episode began/occurred just prior to arrival. Treatment prior to arrival includes: no previous treatment. The patient presents with pain that is acute, and decreased range of motion, and deformity, and an injury. Historical: - Allergies: 01:05 No Known Allergies; rv - Home Meds: 07:39 lisinopril 5 mg oral tab once daily [Active]; simvastatin 20 mg Oral tab 1 tab once jl7 daily [Active]; fluticasone nasal [Active]; - PMHx: 01:05 COPD; Hypertension; Emphysema; Bronchitis; rv - PSHx: 01:05 Appendectomy; STOMACH SX; rv - Immunization history:: Adult Immunizations up to date, Flu vaccine is up to date. - Coronavirus screen:: The patient has NOT traveled to [place] in the past 14 days. Proceed with normal triage process as indicated. The patient has NOT had contact with known/suspected case of Coronavirus? Proceed with normal triage procedures. - Social history:: Smoking status: Patient reports the use of cigarette tobacco products, smokes one pack cigarettes per day. - Family history:: not pertinent. - Ebola Screening: : No symptoms or risks identified at this time. ROS: 01:23 Constitutional: Negative for fever, chills, and weight loss, Eyes: Negative for injury, deander pain, redness, and discharge, ENT: Negative for injury, pain, and discharge, Neck: Negative for injury, pain, and swelling, Cardiovascular: Negative for chest pain, palpitations, and edema, Respiratory: Negative for shortness of breath, cough, wheezing, and pleuritic chest pain, Abdomen/GI: Negative for abdominal pain, nausea, vomiting, diarrhea, and constipation, : Negative for injury, bleeding, discharge, and swelling, MS/Extremity: Negative for injury and deformity, Skin: Negative for injury, rash, and discoloration, Neuro: Negative for headache, weakness, numbness, tingling, and seizure, Psych: Negative for depression, anxiety, suicide ideation, homicidal ideation, and hallucinations, Allergy/Immunology: Negative for hives, rash, and allergies, Endocrine: Negative for neck swelling, polydipsia, polyuria, polyphagia, and marked weight changes, Hematologic/Lymphatic: Negative for swollen nodes, abnormal bleeding, and unusual bruising. 01:23 Back: Positive for decreased range of motion, pain at rest, of the thoracic area. 01:23 MS/extremity: Negative for acute changes, pain. Exam: :23 Constitutional: This is a well developed, well nourished patient who is awake, alert, deandre and in no acute distress. Head/Face: Normocephalic, atraumatic. Eyes: Pupils equal round and reactive to light, extra-ocular motions intact. Lids and lashes normal. Conjunctiva and sclera are non-icteric and not injected. Cornea within normal limits. Periorbital areas with no swelling, redness, or edema. ENT: Nares patent. No nasal discharge, no septal abnormalities noted. Tympanic membranes are normal and external auditory canals are clear. Oropharynx with no redness, swelling, or masses, exudates, or evidence of obstruction, uvula midline. Mucous membranes moist. Neck: Trachea midline, no thyromegaly or masses palpated, and no cervical lymphadenopathy. Supple, full range of motion without nuchal rigidity, or vertebral point tenderness. No Meningismus. Chest/axilla: Normal chest wall appearance and motion. Nontender with no deformity. No lesions are appreciated. Cardiovascular: Regular rate and rhythm with a normal S1 and S2. No gallops, murmurs, or rubs. Normal PMI, no JVD. No pulse deficits. Respiratory: Lungs have equal breath sounds bilaterally, clear to auscultation and percussion. No rales, rhonchi or wheezes noted. No increased work of breathing, no retractions or nasal flaring. Abdomen/GI: Soft, non-tender, with normal bowel sounds. No distension or tympany. No guarding or rebound. No evidence of tenderness throughout. Back: No spinal tenderness. No costovertebral tenderness. Full range of motion. Male : Normal genitalia with no discharge or lesions. Skin: Warm, dry with normal turgor. Normal color with no rashes, no lesions, and no evidence of cellulitis. Neuro: Awake and alert, GCS 15, oriented to person, place, time, and situation. Cranial nerves II-XII grossly intact. Motor strength 5/5 in all extremities. Sensory grossly intact. Cerebellar exam normal. Normal gait. Psych: Awake, alert, with orientation to person, place and time. Behavior, mood, and affect are within normal limits. 01:23 Musculoskeletal/extremity: Extremities: all appear grossly normal, with no appreciated pain with palpation, ROM: no acute changes, Circulation is intact in all extremities. Sensation intact. Compartment Syndrome exam of affected extremity: is normal. Joints: All joints appear normal with full range of motion. Weight bearing: able to fully bear weight, DVT Exam: No signs of deep vein thrombosis. no pain, no swelling, no tenderness, negative Homans' sign noted on exam, no appreciated bluish discoloration, no erythema, no increased warmth. Vital Signs: 01:00 BP 173 / 89 LA; Pulse 63; Resp 16; Temp 98.3; Pulse Ox 98% on R/A; Weight 101.15 kg; rv Height 6 ft. 6 in. (198.12 cm); Pain 0/10; 01:05 BP 157 / 97 RA; Pulse 64; Resp 16; Pulse Ox 98% ; rv 01:30 BP 145 / 88; Pulse 58; Resp 16; Pulse Ox 97% on R/A; rv 02:00 BP 153 / 93; Pulse 59; Resp 14; Pulse Ox 98% on R/A; rv 03:52 BP 154 / 84; Pulse 64; Resp 14; Pulse Ox 97% on R/A; rv 04:45 BP 130 / 65; Pulse 69; Resp 15; Pulse Ox 97% on R/A; rv 05:45 BP 143 / 85; Pulse 74; Resp 16; Pulse Ox 96% on R/A; rv 06:11 BP 155 / 99; Pulse 73; Resp 14; Temp 98(O); Pulse Ox 97% on R/A; rv 07:30 BP 157 / 87; Pulse 62; Resp 17 S; Pulse Ox 94% on R/A; jl7 01:00 Body Mass Index 25.77 (101.15 kg, 198.12 cm) rv MDM: 01:04 Patient medically screened. [facility] 01:26 Data reviewed: vital signs, nurses notes, lab test result(s), EKG, radiologic studies, [facility] CT scan, plain films. 06/10 01:22 Order name: Basic Metabolic Panel; Complete Time: 02:38 [facility] 06/10 01:22 Order name: CBC with Diff; Complete Time: 02:38 [facility] 06/10 01:22 Order name: LFT's; Complete Time: 02:38 [facility] 06/10 01:22 Order name: Magnesium; Complete Time: 02:38 [facility] 06/10 01:22 Order name: NT PRO-BNP; Complete Time: 02:38 [facility] 06/10 01:22 Order name: PT-INR; Complete Time: 02:38 [facility] 06/10 01:22 Order name: Troponin (emerg Dept Use Only); Complete Time: 02:38 [facility] 06/10 01:22 Order name: Lipase; Complete Time: 02:38 [facility] 06/10 01:22 Order name: Urine Culture [facility] 06/10 02:31 Order name: Urine Dipstick--Ancillary (enter results); Complete Time: 04:49 ar5 06/10 05:20 Order name: Lipid Profile [facility] 06/10 05:20 Order name: Lipid Profile [facility] 06/10 05:20 Order name: Troponin I [facility] 06/10 05:20 Order name: Troponin I [facility] 06/10 01:22 Order name: XRAY Chest (1 view) [facility] 06/10 01:22 Order name: EKG; Complete Time: 01:23 [facility] 06/10 01:30 Order name: CT Aorta for Dissection [facility] 06/10 02:33 Order name: Head C Spine Mpr Wo Con [facility] 06/10 05:19 Order name: CONS Physician Consult [facility] 06/10 05:19 Order name: Heart Healthy [facility] 06/10 05:19 Order name: Echo with Doppler [facility] 06/10 05:19 Order name: EKG Electrocardiogram [facility] 06/10 05:19 Order name: EKG Electrocardiogram [facility] 06/10 05:20 Order name: Troponin I [facility] 06/10 01:22 Order name: Cardiac monitoring; Complete Time: 01:52 [facility] 06/10 01:22 Order name: EKG - Nurse/Tech; Complete Time: : [facility] 06/10 01:22 Order name: IV Saline Lock; Complete Time: 01:36 [facility] 06/10 01:22 Order name: Labs collected and sent; Complete Time: 01:36 [facility] 06/10 01:22 Order name: O2 Per Protocol; Complete Time: :36 [facility] 06/10 01:22 Order name: O2 Sat Monitoring; Complete Time: 01:36 [facility] 06/10 01:22 Order name: Urine Dipstick-Ancillary (obtain specimen); Complete Time: 02:28 [facility] 06/10 01:22 Order name: Bilateral blood pressure; Complete Time: : [facility] 06/10 06:42 Order name: Diet Heart Healthy; Complete Time: 08:54 rv Administered Medications: 01:35 Drug: Pepcid 20 mg Route: IVP; Site: right antecubital; rv 03:50 Follow up: Response: No adverse reaction rv 01:35 Drug: Aspirin Chewable Tablet 324 mg Route: PO; rv 03:50 Follow up: Response: No adverse reaction rv 01:35 Drug: Thiamine 100 mg Route: IV; Rate: bolus; Site: right antecubital; rv 03:51 Follow up: IV Status: Completed infusion rv 01:36 Drug: NS 0.9% 1000 ml Route: IV; Rate: 125 ml/hr; Site: right antecubital; rv Disposition: 06/10/19 02:54 Hospitalization ordered by Juan Pablo Crocker for Observation. Preliminary diagnosis are Weakness, Dizziness and giddiness, Essential (primary) hypertension, Chronic obstructive pulmonary disease, unspecified, Strain of muscle, fascia and tendon at neck level, Spondylolysis, cervical region, Abdominal aortic aneurysm, without rupture. - Bed requested for Telemetry/MedSurg (Inpatient). - Status is Observation. jl7 - Condition is Stable. - Problem is new. - Symptoms have improved. Signatures: Dispatcher [employer] EDShay Rust MD MD cha Garcia, Cindy, RN RN Ilda Ann RN RN jl7 Demetrius Vasquez RN RN rv Corrections: (The following items were deleted from the chart) 02:28 01:31 Head Brain Wo Cont+CT.RAD.BRZ ordered. EDNY EDNY 03:13 02:54 Hospitalization Ordered by Juan Pablo Crocker MD for Observation. Preliminary deandre diagnosis is Weakness; Dizziness and giddiness; Essential (primary) hypertension; Chronic obstructive pulmonary disease, unspecified. Bed requested for Telemetry/MedSurg (Inpatient). Status is Observation. Condition is Stable. Problem is new. Symptoms have improved. deandre 03:47 01:23 C Spine Wo Con+CT.RAD.BRZ ordered. [facility] EDMS 04:25 03:13 06/10/2019 02:54 Hospitalization Ordered by Juan Pablo Crocker MD for Observation. deandre Preliminary diagnosis is Weakness; Dizziness and giddiness; Essential (primary) hypertension; Chronic obstructive pulmonary disease, unspecified; Strain of muscle, fascia and tendon at neck level. Bed requested for Telemetry/MedSurg (Inpatient). Status is Observation. Condition is Stable. Problem is new. Symptoms have improved. deandre 05:10 04:25 06/10/2019 02:54 Hospitalization Ordered by Juan Pablo Crocker MD for Observation. deandre Preliminary diagnosis is Weakness; Dizziness and giddiness; Essential (primary) hypertension; Chronic obstructive pulmonary disease, unspecified; Strain of muscle, fascia and tendon at neck level; Spondylolysis, cervical region. Bed requested for Telemetry/MedSurg (Inpatient). Status is Observation. Condition is Stable. Problem is new. Symptoms have improved. deandre 06:35 05:10 06/10/2019 02:54 Hospitalization Ordered by Juan Pablo Crocker MD for Observation. cg Preliminary diagnosis is Weakness; Dizziness and giddiness; Essential (primary) hypertension; Chronic obstructive pulmonary disease, unspecified; Strain of muscle, fascia and tendon at neck level; Spondylolysis, cervical region; Abdominal aortic aneurysm, without rupture. Bed requested for Telemetry/MedSurg (Inpatient). Status is Observation. Condition is Stable. Problem is new. Symptoms have improved. deandre 08:10 06:35 06/10/2019 02:54 Hospitalization Ordered by Juan Pablo Crocker MD for Observation. jl7 Preliminary diagnosis is Weakness; Dizziness and giddiness; Essential (primary) hypertension; Chronic obstructive pulmonary disease, unspecified; Strain of muscle, fascia and tendon at neck level; Spondylolysis, cervical region; Abdominal aortic aneurysm, without rupture. Bed requested for Telemetry/MedSurg (Inpatient). Status is Observation. Condition is Stable. Problem is new. Symptoms have improved. cg
[2019-06-10 03:32] LABS: Urine Blood TRACE (NEG); Urine Glucose NEGATIVE (NEG); Urine Protein NEGATIVE (NEG); Urine pH 6.5 (5.0-7.0)
[2019-06-10] MEDS ORDERED: MORPHINE 4 MG/ML SYR IV PRN (05:09)
[2019-06-10] MEDS ORDERED: ALPRAZOLAM 0.25 MG TABLET PO PRN (05:09)
[2019-06-10] MEDS ORDERED: ACETAMINOPHEN 500 MG TAB PO PRN (05:09)
[2019-06-10 07:21] LABS: Troponin I 0.06 ng/mL (0.0-0.045)
--- NOTE | 2019-06-10 08:35 | RAD REPORT ---
EXAM DESCRIPTION: RAD - Chest Single View - 06/10/2019 2:04 am CLINICAL HISTORY: COUGH Chest pain. COMPARISON: Chest Single View dated 09/07/2017; Chest Single View dated 10/24/2016; CHEST PA AND LAT 2 VIEW dated 07/16/2014; CHEST PA AND LAT 2 VIEW dated 01/11/2005 FINDINGS: Portable technique limits examination quality. Emphysematous changes are present with elevated left hemidiaphragmatic leaflet, chronic. No focal inf iltrate detected. The heart is normal in size. Tortuous thoracic aorta.
--- NOTE | 2019-06-10 08:41 | EKG ---
Test Date: 2019-06-10 Test Time: 01:46:01 Newspaper Press Operator Apprentice: VIVI MEASUREMENT RESULTS: Intervals: Rate: 60 RI: 214 QRSD: 94 QT: 408 QTc: 408 [place]: P: 68 RI: 214 QRS: 23 T: 52 INTERPRETIVE STATEMENTS: Sinus rhythm with 1st degree AV block Otherwise normal ECG Compared to ECG 09/07/2017 11:53:08 First degree AV block now present Electronically Signed On 06-10-19 08:40:52 QUALITY CONTROL ENGINEERING TECHNICIAN by Nirav Rg
[2019-06-10] MEDS: METOPROLOL TAR 50 MG TAB PO SCH ×2 (09:18→20:45)
[2019-06-10] MEDS: ASPIRIN EC 81 MG TAB PO SCH (09:18)
[2019-06-10] MEDS: ENOXAPARIN 40 MG/0.4 ML SQ SCH (09:19)
--- NOTE | 2019-06-10 09:58 | RAD REPORT ---
EXAM DESCRIPTION: CT Head and Cervical Spine Without Intravenous Contrast CLINICAL HISTORY: The patient is 78 years old and is Male; Dizziness;Headache TECHNIQUE: Axial computed tomography images of the head/brain and cervical spine without intravenous contrast. Sagittal and coronal reformatted images were created and reviewed. This CT exam was pe rformed using one or more of the following dose reduction techniques: automated exposure control, a djustment of the mA and/or kV according to patient size, and/or use of iterative reconstruction techn ique. COMPARISON: No relevant prior studies available. FINDINGS: BRAIN: There is diffuse cerebral atrophy present, consistent with this patient's age. There is patchy hypoattenuation of the deep white matter which is non-specific, but most likely owing to chronic small vessel ischemic change in a patient of this age group. No intracranial hemorrhage , mass effect, or midline shift is seen. There are no extra-axial fluid collections. VENTRICLES: Unremarkable. No ventriculomegaly. SKULL: No acute fracture. SINUSES: Unremarkable as visualized. No acute sinusitis. MASTOID AIR CELLS: Unremarkable as visualized. No mastoid effusion. VERTEBRAE: Anterolisthesis of C4 on C5 is present likely secondary to degenerative facet arthrop athy. The vertebral body heights are maintained. DISCS/SPINAL CANAL/NEURAL FORAMINA: There is multi-level intervertebral disc height loss. There are disc-osteophyte complexes at several levels, with associated mild spinal canal narrowing. There i s also facet hypertrophy and uncovertebral joint osteophytosis, with associated multilevel neural for aminal narrowing. SOFT TISSUES: The soft tissues are normal. LUNG APICES: Unremarkable as visualized. IMPRESSION: 1. Age-related atrophy and chronic white matter ischemic changes, with no evidence of an acute intracranial abnormality. 2. Moderate spondylosis of the cervical spine. Electronically signed by: Shantel White MD 06/10/2019 4:11 AM FACULTY NEUROPSYCHOLOGIST Due to temporary technical issues with the PACS/Fluency reporting system, reports are being signed b y the in house radiologist as a courtesy to ensure prompt reporting. The interpreting radiologist is fully responsible for the content of the report.
--- NOTE | 2019-06-10 10:00 | RAD REPORT ---
EXAM DESCRIPTION: CT Angiography Chest, Abdomen and Pelvis With Intravenous Contrast CLINICAL HISTORY: The patient is 78 years old and is Male; upper back, bilateral upper arm pain TECHNIQUE: Axial computed tomographic angiography images of the chest, abdomen and pelvis with intra venous contrast. Sagittal and coronal reformatted images were created and reviewed. This CT exam was performed using one or more of the following dose reduction techniques: automated exposure cont rol, adjustment of the mA and/or kV according to patient size, and/or use of iterative reconstruction technique. MIP reconstructed images were created and reviewed. COMPARISON: No relevant prior studies available. FINDINGS: VASCULATURE: AORTA: Atherosclerosis of the aorta is present. Aneurysmal dilatation of the infrarenal aorta measuring up to 4.9 cm. There is no evidence of rupture or dissection. PULMONARY ARTERIES: Unremarkable as visualized. No pulmonary embolism is identified. GREAT VESSELS OF AORTIC ARCH: No acute findings. No dissection. No arterial occlusion or sig nificant stenosis. CELIAC TRUNK AND MESENTERIC ARTERIES: No acute findings. No occlusion or significant stenosis. RENAL ARTERIES: No acute findings. No occlusion or significant stenosis. 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 The remainder of the iliac vessels are patent. CHEST: LUNGS: Scarring in the lung apices is noted. Few small pulmonary nodules within the lung apices are present, the largest measures 0.4 cm. Minimal left basilar atelectasis is present. PLEURAL SPACE: Unremarkable. No significant effusion. No pneumothorax. HEART: Unremarkable. No cardiomegaly. No significant pericardial effusion. ABDOMEN: LIVER: Unremarkable. No mass. GALLBLADDER AND BILE DUCTS: Unremarkable. No calcified stones. No ductal dilation. PANCREAS: Unremarkable. No ductal dilation. No mass. SPLEEN: Unremarkable. No splenomegaly. ADRENALS: Unremarkable. No mass. KIDNEYS AND URETERS: Unremarkable. No hydronephrosis. No solid mass. STOMACH AND BOWEL: The stomach is decompressed. The small bowel is normal in caliber. A moderate amount stool is present throughout colon. There is no mucosal thickening or evidence of bowel obstru ction. PELVIS: APPENDIX: No findings to suggest acute appendicitis. BLADDER: Unremarkable. No mass. REPRODUCTIVE: A penile implant is present. CHEST, ABDOMEN and PELVIS: INTRAPERITONEAL SPACE: Unremarkable. No significant fluid collection. No free air. BONES/JOINTS: Postsurgical change of the left proximal femur is present. No acute fracture. No dislocation. SOFT TISSUES: Unremarkable. LYMPH NODES: Unremarkable. No enlarged lymph nodes. IMPRESSION: 1. 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 No evidenc e of rupture. No dissection. Recommend follow-up every 6 months and vascular consultation. Reference: J Am Loreta Radiol 2013;10:789-794. 2. 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 3. Incidental pulmonary nodules. If patient is low risk for malignancy, no routine follow-up imaging is recommended; if patient is high risk for malignancy, a non-contrast Chest CT at 12 months is optio nal. If performed and the nodule is stable at 12 months, no further follow-up is recommended. These guidelines do not apply to immunocompromised patients and patients with cancer. Follow up in pa tients with significant comorbidities as clinically warranted. For lung cancer screening, adhere to L maciej-RADS guidelines. Reference: Radiology. 2017; 284(1):228-43. Electronically signed by: Shantel White MD 06/10/2019 4:42 AM SPECIAL SYSTEMS TECHNICIAN Due to temporary technical issues with the PACS/Fluency reporting system, reports are being signed b y the in house radiologist as a courtesy to ensure prompt reporting. The interpreting radiologist is fully responsible for the content of the report.
[2019-06-10] MEDS ORDERED: MIDAZOLAM HCL 2 MG/2 ML INJ ONE (10:19)
[2019-06-10] MEDS ORDERED: ATROPINE SULF 1 MG/10 ML SYR IV ONE (10:19)
[2019-06-10] MEDS ORDERED: NA CHLORIDE 0.9% 0 ML IV ONE (10:19)
[2019-06-10] MEDS ORDERED: FENTANYL CITR 100 MCG/2 ML ONE (10:19)
[2019-06-10] MEDS ORDERED: NA CHLORIDE 0.9% 500 ML ONE (10:22)
--- NOTE | 2019-06-10 11:25 | CON ---
Date of Consultation: 06/10/2019 Mr. Garcia was admitted on 06/10/2019. I saw the patient on 06/10/2019. Reason For Consultation: [id number] myocardial infarction. History Of Present Illness: Mr. Garcia is a 78-year-old male, has a history of hypertension, dyslip idemia, COPD, was admitted with chest pain with bilateral severe arm pain in the antecubital region w ith some diaphoresis, shortness of breath. No nausea, vomiting, PND, orthopnea, pedal edema, palpita tions, or syncope. His troponin is 0.06. Symptoms lasted about 30 minutes to an hour. He woke up f rom sleep with it. Past Medical History: As stated above. Allergies: NONE. Review of Systems: Negative. Social History: Positive for tobacco. Family History: Positive for heart disease. Medications: Include lisinopril, Zocor, and inhalers. Physical Examination: General: Mr. Garcia is in no acute distress. Vital Signs: Stable. He was pain free. HEENT: Negative. Neck: Supple without any bruit, lymphadenopathy, JVD, or thyromegaly. Chest: Clear to auscultation and percussion. Cardiac: Exam revealed a regular rhythm and rate. No murmurs, gallops, or rubs. Abdomen: Benign. Extremities: Revealed no clubbing, cyanosis, or edema. Diagnostic Data: As stated above. Impression And Plan: Chest pain with elevated troponin consistent with [id number] myocardial i nfarction. Patient is on lisinopril, Zocor, inhalers, metoprolol. He just received a dose of Loveno x right after I saw him. We will plan to do a heart catheterization tomorrow morning hopefully via a wrist approach. Mr. Garcia is almost 7 feet tall. I am not so sure the regular catheter will be appropriate on the groin. The case was discussed with the laboratory animal facility supervisor and I will discuss the case further with Dr. Obi Phillip. Continue present regimen otherwise. His other problems include hypertension, dyslipid emia and COPD. Both of those are well controlled. We will see what the echo shows today. Continue present regimen. NB/MODL Voice ID: [id number] Report ID: [id number]
[2019-06-10 11:35] VITALS: BMI 23.3
--- NOTE | 2019-06-10 12:36 | RAD REPORT ---
EXAM DESCRIPTION: - CP - 06/10/2019 11:14 am CLINICAL HISTORY: dizziness; weakness Headache, drowsiness, CVA symptomology COMPARISON: Head C Spine Mpr Wo Con dated 06/10/2019 TECHNIQUE: Real-time sonographic evaluation of both carotid systems was performed. Doppler interroga tion was performed with waveform tracing bilaterally. FINDINGS: Normal high resistance waveforms are noted in both external carotid arteries. The common c arotid arteries and internal carotid arteries show normal low resistance waveforms. Mild to moderate hard plaque is seen in both carotid bulbs, slightly greater on the left. Peak systol ic and end diastolic velocity values and the ICA/CCA ratios are in the non-hemodynamically significan t range. Antegrade flow seen in both vertebral arteries. IMPRESSION: Mild to moderate hard plaquing is seen in both carotid bulbs, slightly greater on the le ft. No evidence of a hemodynamically significant stenosis.
--- NOTE | 2019-06-10 14:28 | RAD REPORT ---
EXAM DESCRIPTION: MRI - Brain W/Wo Cont - 06/10/2019 2:15 pm CLINICAL HISTORY: R/O STROKE Headache, drowsiness, CVA symptomology COMPARISON: MRA Head Wo Cont dated 06/10/2019; MRA Neck W/Wo Cont dated 06/10/2019 TECHNIQUE: Multi-sequence, multiplanar MR imaging of the brain was performed with contrast. FINDINGS: No intracranial hemorrhage, hydrocephalus, or extra-axial fluid collection.Moderate T2 and FLAIR hyperintensity in the periventricular and deep white matter region is noted likely chronic edenilson rovascular ischemic changes. No edema or shift of midline structures. No intracranial mass. DWI is ne gative for acute CVA. The midline structures are normally formed. Mastoid air cells and paranasal sinuses are clear. Post-contrast images show no abnormal enhancement to suggest tumor or infection. IMPRESSION: Negative for acute CVA or other acute intracranial abnormality.
--- NOTE | 2019-06-10 14:29 | RAD REPORT ---
EXAM DESCRIPTION: MRI - MRA Head Wo Cont - 06/10/2019 2:14 pm CLINICAL HISTORY: r/o stroke CVA COMPARISON: Head Brain Wo Cont dated 04/13/2017 FINDINGS: 3D noncontrast [id number] MR angiography of the [place] was performed. No aneurysm, flow-limiting stenosis or vascular malformation is seen. Forward flow seen in codominant vertebral arteries. The visualized dural venous sinuses appear patent. IMPRESSION: No significant flow abnormality of the [place] is identified.
--- NOTE | 2019-06-10 14:40 | RAD REPORT ---
EXAM DESCRIPTION: MRI - MRA Neck W/Wo Cont - 06/10/2019 2:15 pm CLINICAL HISTORY: R/O STROKE Headache, drowsiness, CVA symptomology. COMPARISON: Carotid Artery Bilateral dated 06/10/2019; Head C Spine Mpr Wo Con dated 06/10/2019 FINDINGS: Contrast enhance 2D [id number] MR angiography of the neck vessels was performed. Both common carotid arteries are patent. Moderate narrowing is seen of the carotid bulbs bilaterally estimated at 50-70% based on NASCET crite lacey. This appears to be the result of atherosclerotic plaquing. Findings appear slightly more signifi cant on the right. Antegrade flow is seen in both vertebral arteries. 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 No severe stenosis identified.
--- NOTE | 2019-06-10 15:24 | ECHO ---
HEIGHT: 6 ft 6 in WEIGHT: 201 lb 9 oz DATE OF STUDY: 06/10/[address]: Juan Pablo Crocker MD 2-DIMENSIONAL: YES M.MODE: YES DOPPLER: YES COLOR FLOW: YES TDS: PORTABLE: DEFINITY: BUBBLE STUDY: DIAGNOSIS: CHEST PAIN CARDIAC HISTORY: CATHERIZATION: NO SURGERY: NO PROSTHETIC VALVE: NO PACEMAKER: NO MEASUREMENTS (cm) DIASTOLIC (NORMALS) SYSTOLIC (NORMALS) IVSd 1.0 (0.6-1.2) LA Diam (1.9-4.0) LVEF 67% LVIDd 4.6 (3.5-5.7) LVIDs 2.9 (2.0-3.5) %FS 37% LVPWd 1.1 (0.6-1.2) Ao Diam 3.6 (2.0-3.7) 2 DIMENSIONAL ASSESSMENT: RIGHT ATRIUM: NORMAL LEFT ATRIUM: NORMAL RIGHT VENTRICLE: NORMAL LEFT VENTRICLE: NORMAL TRICUSPID VALVE: NORMAL MITRAL VALVE: NORMAL PULMONIC VALVE: NORMAL AORTIC VALVE: SCLEROSIS PERICARDIAL EFFUSION: NONE AORTIC ROOT: NORMAL LEFT VENTRICULAR WALL MOTION: NORMAL DOPPLER/COLOR FLOW: NORMAL COMMENTS: AORTIC SCLEROSIS NO STENOSIS. NORMAL LEFT VENTRICULAR SIZE AND FUNCTION. NO WALL MOTION ABNORMALITY. NO EFFUSION. TECHNOLOGIST: RINA FRIED
--- NOTE | 2019-06-10 19:20 | P.PN ---
Date of Service: 06/10/19 Patient seen and examined. He reports unsteady gait and dizziness prior to admission. He described a sudden onset of shortness of breath and pain in the left arm prior to admission. His initial troponin in the ED was mildly elevated. Troponin trended up. Patient seen by cardiology and plan for cardiac catheterization tomorrow. Continue aspirin, add Plavix. Awaiting neurology consult.
[2019-06-10] MEDS ORDERED: ENOXAPARIN 40 MG/0.4 ML SQ ONE (21:00)
--- NOTE | 2019-06-11 01:30 | P.HP ---
Certification for Inpatient Patient admitted to: Inpatient With expected LOS: >2 Midnights Patient will require the following post-hospital care: None Practitioner: I am a practitioner with admitting privileges, knowledge of patient current condition, hospital course, and medical plan of care. Services: Services provided to patient in accordance with Admission requirements found in Title 42 Section 412.3 of the Code of Federal Regulations Patient History Date of Service: 06/10/19 Reason for admission: Atypical chest pain; vertigo History of Present Illness: Patient is a 78-year-old gentleman who came to the hospital with vertigo. He said whenever he sits up the room starts spinning. He has been weak and has been using wheelchair for a while. He has been following up with a neurologist in the local area and has had MRI, EMG studies, carotid Doppler studies. Patient's workup had been unremarkable for his lower extremity weakness. Patient had been doing well for the last year. However over the last 24 hr he has been getting vertigo symptoms. He decided to come into the ER for further evaluation. In the ER patient's initial workup has been negative. Patient will be admitted for further evaluation. Allergies No Known Allergies Allergy (Verified 06/10/19 08:34) Home Medications: Fluticasone [Flonase 50MCG Nasal [place]*] 2 sprays MAT BID 06/10/19 Lisinopril [Zestril] 5 mg PO DAILY 06/10/19 - Past Medical/Surgical History Has patient received pneumonia vaccine in the past: Yes Diabetic: No -: HTN -: leg cramps -: bilateral knee surgery -: Appendectomy -: stomach surgery -: hernia -: aneurysm - Family History Father Medical History: Heart disease Notes: pancreratic cancer Mother Medical History: Heart disease, Diabetes, Stroke - Social History Smoking Status: Current every day smoker Alcohol use: Yes CD- Drugs: No Caffeine use: Yes Place of Residence: Home Review of Systems 10-point ROS is otherwise unremarkable Physical Examination - Vital Signs Temperature: 97.4 F Blood Pressure: 97/53 Pulse: 51 Respirations: 18 Pulse Ox (%): 95 - Physical Exam General: Alert, In no apparent distress, Oriented x3 HEENT: Atraumatic, PERRLA, Mucous membr. moist/pink, EOMI, Sclerae nonicteric Neck: Supple, 2+ carotid pulse no bruit, No LAD, Without JVD or thyroid abnormality Respiratory: Clear to auscultation bilaterally, Normal air movement Cardiovascular: Regular rate/rhythm, Normal S1 S2, No murmurs Gastrointestinal: Normal bowel sounds, Soft and benign, Non-distended, No tenderness Musculoskeletal: No clubbing, No swelling, No tenderness Integumentary: No rashes, No cyanosis Neurological: Normal speech, Normal tone, Sensation intact, Cranial nerves 3-12 intact, Normal affect, Abnormal gait, Abnormal strength Lymphatics: No axilla or inguinal lymphadenopathy - Studies Laboratory Data (last 24 hrs) 06/10/19 06:41: Troponin I 0.06 H, Triglycerides 77, Cholesterol 150, HDL Cholesterol 49, Cholesterol/HDL Ratio 3.06 06/10/19 01:34: PT 11.3, INR 0.96 06/10/19 01:34: WBC 4.8, Hgb 14.3, Hct 42.6, Plt Count 169 06/10/19 01:34: Sodium 137, Potassium 4.7, BUN 13, Creatinine 1.04, Glucose 94, Magnesium 2.2, Total Bilirubin 0.9, AST 19, ALT 16, Alkaline Phosphatase 78, Lipase 94 Assessment & Plan - Problems (Diagnosis) (1) Bilateral leg weakness Current Visit: Yes Status: Acute (2) Vertigo Current Visit: Yes Status: Acute (3) Atypical chest pain Current Visit: Yes Status: Acute (4) BPH (benign prostatic hyperplasia) Current Visit: No Status: Chronic Qualifiers: Lower urinary tract symptom presence: symptoms present Lower urinary tract symptom detail: urinary retention Qualified Code(s): N40.1 - Benign prostatic hyperplasia with lower urinary tract symptoms; R33.8 - Other retention of urine (5) COPD (chronic obstructive pulmonary disease) Current Visit: No Status: Chronic Qualifiers: COPD type: chronic bronchitis Chronic bronchitis type: simple Qualified Code(s): J41.0 - Simple chronic bronchitis (6) GERD (gastroesophageal reflux disease) Current Visit: No Status: Chronic Qualifiers: Esophagitis presence: esophagitis presence not specified Qualified Code(s) : K21.9 - Gastro-esophageal reflux disease without esophagitis (7) HTN (hypertension) Current Visit: No Status: Chronic Qualifiers: Hypertension type: essential hypertension Qualified Code(s): I10 - Essential (primary) hypertension - Plan 1. Serial troponins and EKG 2. Cardiology consultation 3. Physical therapy evaluation 4. Anti-platelet therapy, anti coagulation, beta-elliot, statin, and O2 as needed 5. IV morphine for pain 6. Nitro p.r.n. 7. MRI of the brain may be necessary 8. Neurology consultation 9. Echo and carotid Doppler 10. GI and DVT prophylax Discharge Plan: Home Plan to discharge in: Greater than 2 days - Advance Directives Does patient have a Living Will: No Does patient have a Durable POA for Healthcare: No - Code Status/Comfort Care Code Status Assessed: Yes Code Status: Full Code Critical Care: No Time Spent Managing PTS Care (In Minutes): 45
[2019-06-11] MEDS: ENOXAPARIN 40 MG/0.4 ML SQ SCH (07:17)
[2019-06-11] MEDS: ASPIRIN EC 81 MG TAB PO SCH (08:18)
[2019-06-11] MEDS: METOPROLOL TAR 50 MG TAB PO SCH (08:18)
[2019-06-11] MEDS ORDERED: HEPA 1000U/500MLS 2,000 UNIT/1,000 ML BAG IV ONE (11:55)
[2019-06-11] MEDS ORDERED: HEPARIN 5000 UNIT/ML 1 ML VIAL ONE (11:55)
[2019-06-11] MEDS ORDERED: NICARDIPINE HCL 25 MG/10 ML IV ONE (11:56)
[2019-06-11] MEDS ORDERED: MIDAZOLAM HCL 2 MG/2 ML INJ ONE ×2 (11:56→12:21)
[2019-06-11] MEDS ORDERED: FENTANYL CITR 100 MCG/2 ML ONE (11:56)
[2019-06-11] MEDS ORDERED: NITROGLYCERIN 100 MCG/ML SYR (for cath lab use only) IV ONE (11:57)
[2019-06-11] MEDS ORDERED: NA CHLORIDE 0.9% 0 ML IV ONE (11:57)
[2019-06-11] MEDS ORDERED: ATROPINE SULF 1 MG/10 ML SYR IV ONE (11:57)
[2019-06-11] MEDS ORDERED: NITROGLYCERIN/D5W 25 MG/250 ML BTL IV ONE (11:57)
--- NOTE | 2019-06-11 12:17 | P.PN ---
Subjective Date of Service: 06/11/19 Chief Complaint: Atypical chest pain; vertigo Patient has no complaint today. He is scheduled for cardiac catheterization today. Physical Examination - Vital Signs Temperature: 98.5 F Blood Pressure: 106/64 Pulse: 57 Respirations: 18 Pulse Ox (%): 95 - Physical Exam General: Alert, In no apparent distress, Oriented x3 HEENT: Normocephalic, Mucous membr. moist/pink, Sclerae nonicteric Neck: Supple, JVD not distended Respiratory: Clear to auscultation bilaterally, Normal air movement Cardiovascular: No edema, Regular rate/rhythm, Normal S1 S2, No murmurs Capillary refill: <2 Seconds Gastrointestinal: Normal bowel sounds, Soft and benign, Non-distended, No tenderness Musculoskeletal: No swelling, No erythema Integumentary: No rashes Neurological: Normal speech, Normal strength at 5/5 x4 extr, Cranial nerves 3- 12 intact Assessment And Plan - Current Problems (Diagnosis) (1) NSTEMI (non-ST elevated myocardial infarction) Current Visit: Yes Status: Acute (2) Chest pain Current Visit: Yes Status: Acute (3) Vertigo Current Visit: Yes Status: Acute (4) Bilateral leg weakness Current Visit: Yes Status: Chronic (5) HTN (hypertension) Current Visit: No Status: Chronic Qualifiers: Hypertension type: essential hypertension Qualified Code(s): I10 - Essential (primary) hypertension - Plan Continue aspirin, metoprolol. Patient is scheduled for cardiac catheterization today. Brain MRI is negative for acute CVA. Brain MRA shows no significant vascular abnormality. Carotid Doppler shows no hemodynamically significant stenosis. Further neurology workup as outpatient.
[2019-06-11 14:55] VITALS: O2SAT 94
--- NOTE | 2019-06-11 15:49 | P.DS ---
Admission Date: 06/10/19 Discharge Date: 06/11/19 Disposition: ROUTINE DISCHARGE Discharge Condition: FAIR Reason for Admission: Atypical chest pain; vertigo Consultations: Cardiology-Dr. Phillip - Problems (1) NSTEMI (non-ST elevated myocardial infarction) Current Visit: Yes Status: Acute (2) Chest pain Current Visit: Yes Status: Acute (3) Vertigo Current Visit: Yes Status: Acute (4) Bilateral leg weakness Current Visit: Yes Status: Chronic (5) HTN (hypertension) Current Visit: No Status: Chronic Qualifiers: Hypertension type: essential hypertension Qualified Code(s): I10 - Essential (primary) hypertension Brief History of Present Illness: 78-year-old gentleman with a history of chronic bilateral lower extremity weakness presented to the emergency department with a complaint of dizziness which patient described as intermittent, been present for several days, was worse on the night before admission. Patient denied any tinnitus but endorsed feeling of imbalance. He also reports a sudden onset of pain in the left arm and elbow, and left axilla. His EKG in the ED demonstrated sinus rhythm with first-degree AV block. Initial troponin was negative. CT head showed no acute intracranial abnormality. Patient was placed under observation for further management. Hospital Course: Troponin trended up to 0.19. Patient was seen and evaluated by cardiology. He underwent cardiac catheterization and did not require any cardiac intervention. Cardiac cath reports normal coronary arteries. MRI of the brain did not show any acute stroke or bleed. MRA of the brain reported no significant vascular occlusion or aneurysm. Carotid Doppler done reported no hemodynamically significant carotid arterial occlusion. Acute stroke has been ruled out. Patient is deemed clinically stable for discharge. He is discharged to follow with his neurologist for further evaluation regarding his neurologic symptoms. He is prescribed daily aspirin. Vital Signs/Physical Exam: Temp Pulse Resp BP Pulse Ox 98.5 F 58 14 111/50 L 95 06/11/19 14:20 06/11/19 14:50 06/11/19 14:50 06/11/19 14:50 06/11/19 12:16 General: Alert, In no apparent distress, Oriented x3 HEENT: Mucous membr. moist/pink Neck: Supple, JVD not distended Respiratory: Clear to auscultation bilaterally, Normal air movement Cardiovascular: No edema, Regular rate/rhythm, Normal S1 S2, No murmurs Gastrointestinal: Normal bowel sounds, Soft and benign, Non-distended, No tenderness Musculoskeletal: No swelling, No erythema Neurological: Normal speech, Normal strength at 5/5 x4 extr Laboratory Data at Discharge: WBC 4.8 K/uL (4.3-10.9) 06/10/19 01:34 Hgb 14.3 g/dL (13.6-17.9) 06/10/19 01:34 Hct 42.6 % (39.6-49.0) 06/10/19 01:34 Plt Count 169 K/uL (152-406) 06/10/19 01:34 PT 11.3 SECONDS (9.5-12.5) 06/10/19 01:34 INR 0.96 06/10/19 01:34 Sodium 137 mmol/L (136-145) 06/10/19 01:34 Potassium 4.7 mmol/L (3.5-5.1) 06/10/19 01:34 BUN 13 mg/dL (7-18) 06/10/19 01:34 Creatinine 1.04 mg/dL (0.55-1.3) 06/10/19 01:34 Glucose 94 mg/dL (74-106) 06/10/19 01:34 Magnesium 2.2 mg/dL (1.8-2.4) 06/10/19 01:34 Total Bilirubin 0.9 mg/dL (0.2-1.0) 06/10/19 01:34 AST 19 U/L (15-37) 06/10/19 01:34 ALT 16 U/L (12-78) 06/10/19 01:34 Alkaline Phosphatase 78 U/L (45-117) 06/10/19 01:34 Troponin I 0.19 ng/mL (0.0-0.045) H 06/10/19 14:22 Triglycerides 77 mg/dL (<150) 06/10/19 06:41 Cholesterol 150 mg/dL (<200) 06/10/19 06:41 HDL Cholesterol 49 mg/dL (40-60) 06/10/19 06:41 Cholesterol/HDL Ratio 3.06 06/10/19 06:41 Lipase 94 U/L (73-393) 06/10/19 01:34 Home Medications: Fluticasone [Flonase 50MCG Nasal [place]*] 2 sprays MAT BID 06/10/19 Lisinopril [Zestril] 5 mg PO DAILY 06/10/19 Aspirin [Aspirin EC 81 MG] 81 mg PO DAILY #30 tablet. 06/11/19 New Medications: Aspirin [Aspirin EC 81 MG] 81 mg PO DAILY #30 tablet. Diet: AHA Activity: Ad yousuf Followup: Nirav Rg MD [ACTIVE - CAN ADMIT] - Alex Luna MD [ASSOCIATE-ACTIVE - CAN ADMIT] - Time spent managing pt's care (in minutes): 36
[2019-06-11 17:09] VITALS: BP 91/52; TEMP 97.9
--- NOTE | 2019-06-11 22:08 | OP ---
Surgeon: Rajeev Phillip MD Identification: Mr. Garcia is 78. Procedure: Left heart catheterization, coronary left ventricular angiography. Indication: Chest pain with abnormal troponins, the highest troponin is 0.19. Procedure Findings: The patient has no coronary stenosis. There is mild plaque in the circumflex, 2 0% to 30%, no worse than that. The right coronary, left coronary, left main, LAD, obtuse marginals a re all free of any disease. The left ventricular ejection fraction is normal, left ventricular end-d iastolic pressure 10. No aortic valve gradient on pullback and the cause for his abnormal troponins is unknown, but it is not an acute NE. Procedure In Detail: The patient was brought to the cardiac labor conciliator fasting, sedated with Versed an d fentanyl. Prepared and draped in usual sterile fashion. Right radial approach was used. We used 1% lidocaine to anesthetize the skin over the right radial artery, entered the artery with a 21-gauge needle, cannulated with a 0.021 inch diameter guidewire and then used the wire to place 5/6-Pashto T erumo radial sheath. We removed the wire introducer, flushed it, and gave the radial cocktail consis ting of nicardipine, heparin, and nitroglycerin. We guided a TIG catheter into the ascending aorta u sing a short radius J-tip Glidewire and fluoroscopy. We were able to angiogram the left coronary wit h this catheter, only shots could be done of the right using a TIG catheter, so we first t ried a 3DRC. It really was not long enough to reach the cusp, so we switched for 125 cm long JR4 and with this we were able to engage the right coronary and take a good angiogram. At the end of the pr ocedure, the catheters were withdrawn over a wire. The sheath flushed arterial waveform b y connecting to the transducer through the sheath side port. When the sheath was pulled, we closed t he arteriotomy using a TR band. Estimated Blood Loss: 5 mL. Complications: None. Public Relations Writer: Verena Cary. TAMARA/ZANDRA Voice ID: [id number] Report ID: [id number]
== END 2019-06-11 17:45 | disposition home or self-care (01) | DRG 282 ==
LOC: ER 00:53 → ERHOLD 05:18 → 2ND 08:06 → OBSVTOIN 12:18
PROVIDERS: ADMIT Hospitalist; ATTEND Hospitalist
PROC: 4A023N7 Measurement of Cardiac Sampling and Pressure, Left Heart, Percutaneous Approach (ICD-10-PCS; principal; 2019-06-11)
PROC: B211YZZ Fluoroscopy of Multiple Coronary Arteries using Other Contrast (ICD-10-PCS; 2019-06-11)
DX: I21.4 Non-ST elevation (NSTEMI) myocardial infarction (principal); I10 Essential (primary) hypertension; R42 Dizziness and giddiness; N40.0 Benign prostatic hyperplasia without lower urinary tract symptoms; J41.0 Simple chronic bronchitis; K21.9 Gastro-esophageal reflux disease without esophagitis; E78.5 Hyperlipidemia, unspecified
CPT/HCPCS: 36415; 70450; 70544; 70549; 70553; 71045; 71275; 72125; 74175; 80048; 80061; 80076; 81003; 83690; 83735; 83880; 84484; 85025; 85610; 87086; 87088; 93005; 93306; 93458; 93880; 96365; 96366; 96375; 99285; A9577; C1893; G0378; J0583; J1644; J1650; J2250; J3010; J3411; J7030; J7040; Q9967

== ENCOUNTER 2020-10-12 06:34 | Day surgery (SDC) | payer OTHER ==
--- NOTE | 2020-10-08 11:47 | RAD REPORT ---
EXAM DESCRIPTION: Kailyn Bhatt (2 Views)10/08/2020 11:23 am CLINICAL HISTORY: Preop/hypertension COMPARISON: 2019 FINDINGS: The lungs appear clear of acute infiltrate. The heart is normal size IMPRESSION: No acute abnormalities displayed
[2020-10-08 12:03] LABS: Absolute Lymphocytes (CBC) 2.5 K/uL (0.7-4.9); Basophils % 0.5 % (0-1.3); Hematocrit 43.1 % (39.6-49.0); Lymphocytes % 42.9 % (15.3-44.8); MPV 8.1 fL (7.6-11.3); RBC Red Blood Cell Count 4.35 M/uL (4.33-5.43)
[2020-10-08 12:05] LABS: Protime INR 0.93
[2020-10-08 12:17] LABS: Potassium 4.8 mmol/L (3.5-5.1)
--- NOTE | 2020-10-08 15:56 | EKG ---
Test Date: 2020-10-08 Test Time: 10:24:58 Radiologic Technologist Mammogram: MEASUREMENT RESULTS: Intervals: Rate: 57 ID: [id number] QRSD: 94 QT: 394 QTc: 383 [place]: P: 65 ID: [id number] QRS: 50 T: 65 INTERPRETIVE STATEMENTS: Sinus bradycardia with 1st degree AV block Otherwise normal ECG Compared to ECG 06/10/2019 01:46:01 Sinus rhythm no longer present Electronically Signed On 10-08-20 15:55:55 CDT by Nirav Rg
[2020-10-12] MEDS ORDERED: HEPA 1000U/500MLS 2,000 UNIT/1,000 ML BAG IV ONE (06:57)
[2020-10-12] MEDS ORDERED: LIDOCAINE 1% 20 ML MDV ONE (06:57)
[2020-10-12] MEDS ORDERED: NA CHLORIDE 0.9% 500 ML ONE (07:02)
[2020-10-12] MEDS ORDERED: FENTANYL CITR 100 MCG/2 ML ONE (07:51)
[2020-10-12] MEDS ORDERED: ATROPINE SULF 1 MG/10 ML SYR IV ONE (07:51)
[2020-10-12] MEDS ORDERED: MIDAZOLAM HCL 2 MG/2 ML INJ ONE (07:51)
[2020-10-12 08:33] VITALS: TEMP 96.9
[2020-10-12 10:16] VITALS: BP 156/88; O2SAT 96
--- NOTE | 2020-10-15 13:32 | OP ---
Date of Procedure: 10/12/2020 Surgeon: Nirav Rg MD Laboratory Specialist: Mr. Steve Swift. Procedure: Abdominal angiogram with runoff. Indication: Abdominal aortic aneurysm and severe peripheral arterial disease. History Of Present Illness: Mr. Garcia is 80, has had claudication, abdominal aortic aneurysm that we have been following that have increased in size on ultrasound. He was brought to the molder labels as an outpatient, prepped and draped in the routine sterile fashion, given Versed and fentanyl for IV se dation. A 6-British sheath was introduced in the right common femoral artery successfully using the S eldinger technique and 10 cc of xylocaine. A pigtail catheter was advanced above the renals. Abdomi nal angiogram with runoff was performed revealing normal renal. He had a fusiform of this aneurysm, the size of which was still pending. There were no saccular aneurysm. His iliac arteries were revie wed as well. 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 We had to put a sheath in th e left femoral artery to do the procedure completely. He had stenosis in the SFA bilaterally. Both of them were completely blocked. There were some reconstitution distally with severe disease below-t he-knee on both sides. The patient tolerated the procedure well. There were no complications. Blood Loss: 5 mL. Anesthesia: Total conscious sedation was 45 minutes. Final Diagnoses: Severe peripheral arterial disease, fusiform abdominal aortic aneurysm. 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 History Of Present Illness: Mr. Garcia will be given a CD that we just performed. He will have a f ollowup with Dr. Seals, Vascular surgeon in the near future for possible intervention with stent versus surgery. Angio-Seal was used to close the case in the left femoral artery, held pressu re on the right side. The patient will remain in the hospital for 2 hours for bedrest and he will go home after that. KEVIN/ZANDRA Voice ID: [id number] Report ID: [id number]
== END 2020-10-12 10:15 | disposition home or self-care (01) ==
LOC: CCL 06:34
DX: I70.213 Atherosclerosis of native arteries of extremities with intermittent claudication, bilateral legs (principal); I70.92 Chronic total occlusion of artery of the extremities; I71.4 Abdominal aortic aneurysm, without rupture; I25.10 Atherosclerotic heart disease of native coronary artery without angina pectoris; I65.23 Occlusion and stenosis of bilateral carotid arteries; I10 Essential (primary) hypertension; E78.2 Mixed hyperlipidemia; J44.1 Chronic obstructive pulmonary disease with (acute) exacerbation; K21.9 Gastro-esophageal reflux disease without esophagitis; F17.210 Nicotine dependence, cigarettes, uncomplicated; Z82.49 Family history of ischemic heart disease and other diseases of the circulatory system
CPT/HCPCS: 93005; 85025; 80048; 36415; 85610; 85730; 71046; 36200; 75630; C1893; C1760; J2250; J3010; J7040; J1644

== ENCOUNTER 2020-12-09 11:08 | Day surgery (SDC) | payer OTHER ==
[2020-12-07 14:01] LABS: Absolute Lymphocytes (CBC) 2.3 K/uL (0.7-4.9); Basophils % 0.4 % (0-1.3); Hematocrit 41.9 % (39.6-49.0); Lymphocytes % 43.2 % (15.3-44.8); MPV 7.6 fL (7.6-11.3); RBC Red Blood Cell Count 4.31 M/uL (4.33-5.43)
[2020-12-07 14:05] LABS: Protime INR 0.95
[2020-12-07 14:21] LABS: Potassium 4.7 mmol/L (3.5-5.1)
[2020-12-09] MEDS ORDERED: NA CHLORIDE 0.9% 500 ML ONE (11:41)
[2020-12-09] MEDS ORDERED: LIDOCAINE 1% 20 ML MDV ONE (12:00)
[2020-12-09] MEDS ORDERED: HEPA 1000U/500MLS 2,000 UNIT/1,000 ML BAG IV ONE (12:00)
[2020-12-09] MEDS ORDERED: NITROGLYCERIN 100 MCG/ML SYR (for cath lab use only) IV ONE (12:20)
[2020-12-09] MEDS ORDERED: MIDAZOLAM HCL 2 MG/2 ML INJ ONE (12:20)
[2020-12-09] MEDS ORDERED: FENTANYL CITR 100 MCG/2 ML ONE (12:20)
[2020-12-09] MEDS ORDERED: NA CHLORIDE 0.9% 0 ML ONE (12:21)
[2020-12-09] MEDS ORDERED: NITROGLYCERIN/D5W 25 MG/250 ML BTL IV ONE (12:21)
[2020-12-09] MEDS ORDERED: ATROPINE SULF 1 MG/10 ML SYR IV ONE (12:21)
[2020-12-09] MEDS ORDERED: VERAPAMIL HCL 10 MG/4 ML VIAL IV ONE (12:22)
[2020-12-09] MEDS ORDERED: HEPARIN 5000 UNIT/ML 1 ML VIAL ONE (12:23)
[2020-12-09] MEDS ORDERED: REGADENOSON 0.4 MG/5 ML SYR IV ONE (13:06)
--- NOTE | 2020-12-09 14:11 | OP ---
Date of Procedure: 12/09/2020 Surgeon: RUSS CONNOLLY Procedures Performed: 1.Selective coronary angiogram. 2.Left heart catheterization. 3.IFR of mid left circumflex, moderate stenosis, insignificant value of 1.0. Access: Right radial artery 6-Jordanian closed with TR band. Complications: None. Bleeding: Less than 10 mL. Description Of Procedure: After risks, benefits, and alternatives were explained, the patient agreed to the procedure and signed informed consent. The patient was brought in the cardiac catheterizatio n laboratory, prepped and draped in usual sterile fashion. Then, I accessed right radial artery usin g pediatric micropuncture kit. I took a 5-Jordanian Mcbrides 4.0 catheter into the aortic root. The mali ter did not reach very well the coronary arteries and exchanged for a JL4 catheter, engaged left main , took standard views, found a moderate disease of left circumflex. Then, we gave systemic heparin t o assure ACT level above 250 and then I took a Comet wire into the aortic root and equalized pressure s, and then I took the wire across the left circumflex area of stenosis and IFR was measured and it w as 1.0 indicating insignificant disease and wire was pulled back and there was no drift. Final angio gram showed no complications. Then, I exchanged for 6-Jordanian JR4 long catheter as regular catheters would not reach the ostium of the coronary arteries and engaged the RCA. Standard views were taken. Then, I removed the catheter and sheath, and placed TR band with good hemostasis. Findings: 1.Left main; large, normal. 2.LAD; large, tortuous and normal. Normal branches. 3.Left circumflex; large artery, codominant circulation with mid 50% to 60% stenosis. IFR value was insignificant of 1.0. 4.RCA; codominant circulation and it is normal. 5.LVEDP of 3 mmHg. Conclusion: Moderate nonobstructive left circumflex disease with negative IFR of 1.0. Plan: Aggressive cardiac risk factor modification, medical management. SR/MODL Voice ID: [id number] Report ID: [id number]
[2020-12-09 14:27] VITALS: TEMP 97.4
[2020-12-09 16:39] VITALS: BP 134/70; O2SAT 96
== END 2020-12-09 16:00 | disposition home or self-care (01) ==
LOC: CCL 11:08
PROVIDERS: ATTEND Internal Medicine
DX: I25.10 Atherosclerotic heart disease of native coronary artery without angina pectoris (principal); I65.23 Occlusion and stenosis of bilateral carotid arteries; I70.213 Atherosclerosis of native arteries of extremities with intermittent claudication, bilateral legs; I71.4 Abdominal aortic aneurysm, without rupture; I10 Essential (primary) hypertension; E78.2 Mixed hyperlipidemia; J44.1 Chronic obstructive pulmonary disease with (acute) exacerbation; K21.9 Gastro-esophageal reflux disease without esophagitis; F17.210 Nicotine dependence, cigarettes, uncomplicated; Z20.822 Contact with and (suspected) exposure to COVID-19; Z82.49 Family history of ischemic heart disease and other diseases of the circulatory system
CPT/HCPCS: 85025; 80048; 36415; 85610; 85730; 93458; 93571; U0003; C1893; J1644 ×2; J2250; J3010; J7040; J0583; J2785

== ENCOUNTER 2023-09-09 21:40 | Emergency (ER) | payer OTHER ==
[2023-09-09] MEDS ORDERED: LIDOCAINE HCL JELLY 2% 6 ML SYRINGE TOP ONE (22:56)
--- NOTE | 2023-09-09 23:28 | ER ---
Nurse's Notes [facility] Name: Flakito Garcia Age: 83 yrs Sex: Male : 1940 Arrival Date: 09/09/2023 Time: 21:40 Bed 20 Private MD: Diagnosis: Leakage of urinary (indwelling) catheter Presentation: 09/08 22:00 Chief complaint: Patient states: Pt's crews catheter became disconnected from the tl4 collection bag. Pt denies pain. Coronavirus screen: At this time, the client does not indicate any symptoms associated with coronavirus-19. Ebola Screen: No symptoms or risks identified at this time. Initial Sepsis Screen: Does the patient meet any 2 criteria? No. Patient's initial sepsis screen is negative. Does the patient have a suspected source of infection? No. Patient's initial sepsis screen is negative. Risk Assessment: Do you want to hurt yourself or someone else? Patient reports no desire to harm self or others. Onset of symptoms was September 09, 2023 at 21:00. 22:00 Method Of Arrival: EMS: [facility] tl4 22:00 Acuity: JUWAN 4 tl4 Triage Assessment: 22:02 General: Appears in no apparent distress. Behavior is calm, cooperative. Pain: Denies tl4 pain. EENT: No signs and/or symptoms were reported regarding the EENT system. Neuro: Level of Consciousness is awake, alert, obeys commands, Oriented to person, place, time, situation, Retail Event Coordinator are equal bilaterally Moves all extremities. Full function Speech is normal. Cardiovascular: Capillary refill < 3 seconds Patient's skin is warm and dry. Respiratory: Airway is patent Respiratory effort is even, unlabored, Respiratory pattern is regular, symmetrical, Breath sounds are clear bilaterally. GI: No signs and/or symptoms were reported involving the gastrointestinal system. : No signs and/or symptoms were reported regarding the genitourinary system. Derm: No signs and/or symptoms reported regarding the dermatologic system. Musculoskeletal: No signs and/or symptoms reported regarding the musculoskeletal system. Historical: - Allergies: 22:29 No Known Allergies; tl4 - Home Meds: 22:29 lisinopril 20 mg oral tablet 1 tab 2 times per day [Active]; alfuzosin 10 mg oral tl4 Tablet, Extended Release 24 hr 1 tab daily [Active]; albuterol sulfate 90 mcg/actuation Inhl HFA Aerosol Inhaler [Active]; - PMHx: 22:29 Bronchitis; COPD; Emphysema; Hypertension; tl4 - PSHx: 22:29 None; tl4 - Immunization history:: Adult Immunizations unknown. - Infectious Disease History:: Denies. - Social history:: Smoking status: Patient reports the use of cigarette tobacco products, smokes one pack cigarettes per day. Screenin:33 [facility] ED Fall Risk Assessment (Adult) History of falling in the last 3 months, tl4 including since admission No falls in past 3 months (0 pts) Confusion or Disorientation No (0 pts) Intoxicated or Sedated No (0 pts) Impaired Gait No (0 pts) Mobility Assist Device Used No (0 pt) Altered Elimination No (0 pt) Score/Fall Risk Level 0 - 2 = Low Risk Oriented to surroundings, Maintained a safe environment, Educated pt \T\ family on fall prevention, incl call for assistance when getting out of bed, Assessed \T\ reinforced patient's understanding of fall precautions. Abuse screen: Denies threats or abuse. Denies injuries from another. Nutritional screening: No deficits noted. Tuberculosis screening: No symptoms or risk factors identified. Assessment: 22:32 Reassessment: Patient and/or family updated on plan of care and expected duration. Pain tl4 level reassessed. Patient is alert, oriented x 3, equal unlabored respirations, skin warm/dry/pink. Patient denies pain at this time. Vital Signs: 22:00 BP 117 / 63; Pulse 91; Resp 16; Temp 98.2(O); Pulse Ox 97% on R/A; Weight 92.08 kg; tl4 Height 6 ft. 3 in. ; Pain 0/10; 22:32 BP 119 / 64; Pulse 88; Resp 16; Pulse Ox 99% on R/A; tl4 22:00 Body Mass Index 25.37 (92.08 kg, 190.5 cm) tl4 22:00 Pain Scale: Adult tl4 ED Course: 21:42 Patient arrived in ED. ec2 21:42 Hernan Woods MD is Attending Physician. ec2 22:24 Catalino Garber RN is Primary Nurse. tl4 22:29 Triage completed. tl4 22:32 Arm band placed on right wrist. tl4 22:33 Patient has correct armband on for positive identification. Placed in gown. Bed in low tl4 position. Call light in reach. Side rails up X2. Provided Education on: ED process, call jewell. Client placed on continuous cardiac and pulse oximetry monitoring. NIBP monitoring applied. Door closed. Noise minimized. Lights dimmed. Moved to private room. Warm blanket given. Pillow given. 22:34 No provider procedures requiring assistance completed. Patient did not have IV access tl4 during this emergency room visit. 23:18 Crews cath inserted, using sterile technique, 16 Fr., by md, balloon inflated, to tl4 gravity drainage, returned efra urine. Patient tolerated well. Administered Medications: 23:32 Drug: Lidocaine Mucous Membrane Gel 2 % 1 application Mucous Membrane once Route: tl4 Mucous Membrane; 23:32 Follow up: Response: No adverse reaction tl4 Medication: 22:33 VIS not applicable for this client. tl4 Outcome: 23:28 Discharge ordered by . ec2 09/09 00:03 Patient left the ED. eb1 Signatures: Sonal Perea RN RN eb1 Hernan Woods MD MD ec2 Catalino Garber RN RN tl4 Corrections: (The following items were deleted from the chart) 09/08 22:31 22:29 PMHx: Neuropathy (Hypertension); tl4 tl4
--- NOTE | 2023-09-09 23:28 | EDPHYS ---
Physician Documentation [facility] Name: Flakito Garcia Age: 83 yrs Sex: Male : 1940 Arrival Date: 09/09/2023 Time: 21:40 Bed 20 Private MD: ED Physician Hernan Woods HPI: 09/08 21:45 This 83 yrs old Male presents to ER via Unassigned with complaints of crews issue. ec2 21:45 Patient arrives today for evaluation of a Crews issue. Patient with indwelling Crews ec2 catheter, states he is leaking urine. Patient denies any abdominal pain, denies any other concerns. Patient wanted his Crews evaluated.. Historical: - Allergies: 22:29 No Known Allergies; tl4 - Home Meds: 22:29 lisinopril 20 mg oral tablet 1 tab 2 times per day [Active]; alfuzosin 10 mg oral tl4 Tablet, Extended Release 24 hr 1 tab daily [Active]; albuterol sulfate 90 mcg/actuation Inhl HFA Aerosol Inhaler [Active]; - PMHx: 22:29 Bronchitis; COPD; Emphysema; Hypertension; tl4 - PSHx: 22:29 None; tl4 - Immunization history:: Adult Immunizations unknown. - Infectious Disease History:: Denies. - Social history:: Smoking status: Patient reports the use of cigarette tobacco products, smokes one pack cigarettes per day. ROS: 21:45 Constitutional: as per hpi ec2 Exam: 21:45 Constitutional: GEN: NAD Head: atraumatic Eyes: EOMI Ears: External ears are ec2 normal. CV: regular rate LUNGS: no respiratory distress ABD: non-distended, soft, nontender, no guarding, not rigid. : Crews catheter within the urethra. SKIN: no evidence of rashes MSK: no evidence of trauma NEURO: moves all extremities equally Vital Signs: 22:00 BP 117 / 63; Pulse 91; Resp 16; Temp 98.2(O); Pulse Ox 97% on R/A; Weight 92.08 kg; tl4 Height 6 ft. 3 in. ; Pain 0/10; 22:32 BP 119 / 64; Pulse 88; Resp 16; Pulse Ox 99% on R/A; tl4 22:00 Body Mass Index 25.37 (92.08 kg, 190.5 cm) tl4 22:00 Pain Scale: Adult tl4 MDM: 21:42 Patient medically screened. ec2 21:45 Data reviewed: vital signs. ED course: Patient arrives today for evaluation of Crews ec2 catheter issue. Examination remarkable for well-appearing nontoxic dividual is otherwise in no acute distress with a reassuring examination. Will have nursing replace the Crews catheter. . 23:28 ED course: Crews catheter replaced without issue. Will discharge home. Return ec2 precautions given. 09/08 21:42 Order name: Crews; Complete Time: 23:17 ec2 Administered Medications: 23:32 Drug: Lidocaine Mucous Membrane Gel 2 % 1 application Mucous Membrane once Route: tl4 Mucous Membrane; 23:32 Follow up: Response: No adverse reaction tl4 Disposition Summary: 09/09/23 23:28 Discharge Ordered Notes: Location: Home ec2 Condition: Stable ec2 Diagnosis - Leakage of urinary (indwelling) catheter ec2 Followup: ec2 - With: Private Physician - When: - Reason: Re-evaluation by your physician Discharge Instructions: - Discharge Summary Sheet ec2 - Indwelling Urinary Catheter Insertion at Home, Male ec2 Forms: - Medication Reconciliation Form ec2 - Antibiotic Education ec2 - Prescription Opioid Use ec2 - Patient Portal Instructions ec2 - Leadership Thank You Letter ec2 Signatures: Hernan Woods MD MD ec2 Catalino Garber RN RN tl4 Corrections: (The following items were deleted from the chart) 22:31 22:29 PMHx: Neuropathy (Hypertension); tl4 tl4
[2023-09-10 00:47] VITALS: BP 119/64; TEMP 98.2; O2SAT 99
== END 2023-09-10 00:03 | disposition home or self-care (01) ==
LOC: ER 21:40
DX: T83.038A Leakage of other urinary catheter, initial encounter (principal)
CPT/HCPCS: 51702; 99284

== ENCOUNTER 2023-09-22 22:18 | Emergency (ER) | payer OTHER ==
[2023-09-22] MEDS ORDERED: MORPHINE 4 MG/ML SYR ONE (22:39)
[2023-09-22] MEDS ORDERED: ONDANSETRON 4 MG/2 ML VIAL ONE (22:39)
[2023-09-22] MEDS ORDERED: NA CHLORIDE 0.9% 100 ML ONE (22:40)
[2023-09-22] MEDS ORDERED: NA CHLORIDE 0.9% 500 ML ONE (22:40)
[2023-09-22] MEDS ORDERED: CEFEPIME 2 GM VIAL ONE (22:40)
--- NOTE | 2023-09-22 22:43 | ER ---
Nurse's Notes [facility] Name: Flakito Garcia Age: 83 yrs Sex: Male : 1940 Arrival Date: 09/22/2023 Time: 22:18 Bed 20 Private MD: Diagnosis: Penile prosthesis perforation Presentation: 09/21 22:27 Chief complaint: Patient states: I have been having penile pain and swelling for the jb4 past 2 months and now tonight it has worsened. Coronavirus screen: At this time, the client does not indicate any symptoms associated with coronavirus-19. Ebola Screen: No symptoms or risks identified at this time. Initial Sepsis Screen: Does the patient meet any 2 criteria? No. Patient's initial sepsis screen is negative. Does the patient have a suspected source of infection? No. Patient's initial sepsis screen is negative. Risk Assessment: Do you want to hurt yourself or someone else? Patient reports no desire to harm self or others. Onset of symptoms was September 22, 2023. Transition of care: patient was not received from another setting of care. 22:27 Method Of Arrival: EMS: [facility] jb4 22:27 Acuity: JUWAN 3 jb4 Historical: - Allergies: 22:33 No Known Allergies; jb4 - PMHx: 22:33 COPD; Bronchitis; Emphysema; Hypertension; jb4 - PSHx: 22:33 abdominal surgery; Appendectomy; knee; hip x2; penile impant x2; jb4 - Immunization history:: Adult Immunizations up to date. - Infectious Disease History:: Denies. Screenin/09 01:23 [facility] ED Fall Risk Assessment (Adult) History of falling in the last 3 months, jb4 including since admission No falls in past 3 months (0 pts) Confusion or Disorientation No (0 pts) Intoxicated or Sedated No (0 pts) Impaired Gait No (0 pts) Mobility Assist Device Used No (0 pt) Altered Elimination No (0 pt) Score/Fall Risk Level 0 - 2 = Low Risk Oriented to surroundings, Maintained a safe environment. Abuse screen: Denies threats or abuse. Nutritional screening: No deficits noted. Tuberculosis screening: No symptoms or risk factors identified. Assessment: 09/21 22:30 General: Appears in no apparent distress. uncomfortable, Behavior is calm, cooperative, jb4 appropriate for age. Pain: Complains of pain in head of penis Pain does not radiate. Pain currently is 8 out of 10 on a pain scale. Neuro: Level of Consciousness is awake, alert, obeys commands, Oriented to person, place, time, situation. Cardiovascular: Patient's skin is warm and dry. Respiratory: Airway is patent Respiratory effort is even, unlabored, Respiratory pattern is regular, symmetrical. GI: No signs and/or symptoms were reported involving the gastrointestinal system. : Penile implant appears to have punctured through the penis. EENT: No signs and/or symptoms were reported regarding the EENT system. Derm: Skin is pink, warm \T\ dry. Musculoskeletal: Circulation, motion, and sensation intact. Range of motion: intact in all extremities. 09/22 00:00 Reassessment: Patient appears in no apparent distress at this time. Patient and/or jb4 family updated on plan of care and expected duration. Pain level reassessed. Patient is alert, oriented x 3, equal unlabored respirations, skin warm/dry/pink. 01:23 Reassessment: Patient appears in no apparent distress at this time. Patient and/or jb4 family updated on plan of care and expected duration. Pain level reassessed. Patient is alert, oriented x 3, equal unlabored respirations, skin warm/dry/pink. Vital Signs: 09/21 22:27 BP 155 / 76; Pulse 71; Resp 16; Temp 98.2(O); Pulse Ox 100% on R/A; Weight 88 kg (R); jb4 Height 6 ft. 6 in. (R); Pain 8/10; 09/22 00:29 BP 143 / 55; Pulse 77; Resp 16; Pulse Ox 98% on R/A; jb4 09/21 22:27 Body Mass Index 22.42 (88.00 kg, 198.12 cm) jb4 09/21 22:27 Pain Scale: Adult jb4 ED Course: 09/21 22:22 Patient arrived in ED. jb4 22:27 Jean Thomas, CINDY is Primary Nurse. jb4 22:28 [facility]C [facility] kb 22:28 Duglas Giraldo MD is Attending Physician. kb 22:33 Triage completed. jb4 22:33 Arm band placed on right wrist. jb4 22:[address] [facility] for urology. kmf 09/22 00:[address] [facility] room [address]. Accept[address] Jesus, B \T\[id number]. Admin approval given [facility] by Rj Roblero. Number for nurse to nurse report [phone]. [facility] to transfer pt. 01:23 Patient has correct armband on for positive identification. Bed in low position. Call jb4 light in reach. Side rails up X 1. Provided Education on: Need for transfer. 01:23 No provider procedures requiring assistance completed. Patient transferred, IV remains jb4 in place. Administered Medications: 09/21 23:14 Drug: Cefepime IVPB 2 grams IVPB at 200 ml/hr once over 30 mins; (mix in NS 100 mL) jb4 Route: IVPB; Rate: 200 ml/hr; Infused Over: 30 mins; Site: right antecubital; 23:43 Follow up: Response: No adverse reaction; IV Status: Completed infusion; IV Intake: cm10 100ml 23:14 Drug: morphine IVP or IV 4 mg IVP once over 4 mins Route: IVP; Infused Over: 4 mins; jb4 Site: right antecubital; 23:14 Drug: Ondansetron IVP 4 mg IVP once; over 2 minutes Route: IVP; Site: right antecubital;jb4 23:14 Drug: NS 0.9% IV 500 ml IV at bolus once Route: IV; Rate: bolus; Site: right jb4 antecubital; 23:43 Follow up: Response: No adverse reaction; IV Status: Completed infusion; IV Intake: cm10 500ml 09/22 00:29 Drug: vancoMYCIN IVPB 1 grams IVPB once over 2 hrs Route: IVPB; Infused Over: 2 hrs; jb4 Site: right antecubital; Medication: 01:23 VIS not applicable for this client. jb4 Intake: 09/21 23:43 IV: 500ml; Total: 500ml. cm10 23:43 IV: 100ml; Total: 600ml. cm10 Outcome: 22:43 ER care complete, transfer ordered by MD. wilkins 09/22 01:23 Discharged to home ambulatory, jb4 Condition: stable Discharge instructions given to patient, Instructed on the need for transfer, Demonstrated understanding of instructions, 01:25 Patient left the ED. jb4 Signatures: Ingris Dasilva FNP-C FNP-Jean Hernandez RN RN jb4 Dyan Robb RN RN cm10 Nicole Casillas [facility] Corrections: (The following items were deleted from the chart) 02:55 01:[address] [facility]rology. [facility]
--- NOTE | 2023-09-22 22:44 | EDPHYS ---
Physician Documentation [facility] Name: Flakito Garcia Age: 83 yrs Sex: Male : 1940 Arrival Date: 09/22/2023 Time: 22:18 Bed 20 Private MD: ED Physician Duglas Giraldo HPI: 09/21 22:40 This 83 yrs old Male presents to ER via EMS with complaints of Penile Problem. kb 22:40 Pt is an 83 year old male who presents for "protrusion from head of penis" and penile kb pain. States he has had pain for about 2.5 months. States he was seen by PCP who referred him to a urologist. States he saw Dr Douglas one month ago and had a crews put in. States he has continued to have a burning pain to head of penis and was told to take OTC pain medication. Reports he had noticed a lump and thought he had a boil, but today it busted and something is coming out of it. Denies fever. . Historical: - Allergies: 22:33 No Known Allergies; jb4 - PMHx: 22:33 COPD; Bronchitis; Emphysema; Hypertension; jb4 - PSHx: 22:33 abdominal surgery; Appendectomy; knee; hip x2; penile impant x2; jb4 - Immunization history:: Adult Immunizations up to date. - Infectious Disease History:: Denies. ROS: 22:30 Constitutional: As per HPI kb Exam: 22:31 Constitutional: This is a well developed, well nourished patient who is awake, alert, kb and in no acute distress. Head/Face: Normocephalic, atraumatic. ENT: Moist Mucous membranes Cardiovascular: Regular rate Respiratory: Respirations even and unlabored. No increased work of breathing. Talking in full sentences Abdomen/GI: Soft, non-tender. No distention Skin: Warm, dry with normal turgor. Normal color. MS/ Extremity: Pulses equal, no cyanosis. Neurovascular intact. Full, normal range of motion. Neuro: Awake and alert, GCS 15, oriented to person, place, time, and situation. Moves all extremities. Normal gait. 22:31 : a crews is noted, to gravity drainage, swelling noted to penis with perforation just below glans by prosthesis, purulent drainage noted , 23:23 ECG was reviewed by the Attending Physician. kb Vital Signs: 22:27 BP 155 / 76; Pulse 71; Resp 16; Temp 98.2(O); Pulse Ox 100% on R/A; Weight 88 kg (R); jb4 Height 6 ft. 6 in. (R); Pain 8/10; 09/22 00:29 BP 143 / 55; Pulse 77; Resp 16; Pulse Ox 98% on R/A; jb4 09/21 22:27 Body Mass Index 22.42 (88.00 kg, 198.12 cm) [facility] 09/21 22:27 Pain Scale: Adult jb4 MDM: 09/21 22:28 Patient medically screened. kb 22:30 Data reviewed: vital signs, nurses notes. kb 22:36 Differential diagnosis: Crews catheter problem, penile perforation, uti, cellulitis. kb Consideration of Admission/Observation Escalation of care including admission/observation considered. pt will be transferred to [facility] for urology. Pt had this prosthesis placed there by Dr Villarreal 6 years ago. Historians other than the Patient: EMS: [facility]. Daughter/Son: son. 23:14 Management of patient was discussed with the following: Dr Diamond, urologist at [facility], accepts pt for consult. 23:51 Management of patient was discussed with the following: Dr Jesus, hospitalist at [facility], accepts pt for transfer. Counseling: I had a detailed discussion with the patient and/or guardian regarding the historical points, exam findings, and any diagnostic results supporting the discharge/admit diagnosis, lab results, the need to transfer to another facility, [facility] does not immediately have the required specialist. 09/21 22:29 Order name: Blood Culture Adult (2) 09/21 22:29 Order name: CBC with Diff; Complete Time: 23:23 kb 09/21 22:29 Order name: CMP; Complete Time: 23:31 kb 09/21 22:29 Order name: Lactate w/ 2H reflex if indic.; Complete Time: 23:31 kb 09/21 22:29 Order name: EKG; Complete Time: 22:29 09/21 22:29 Order name: Accucheck; Complete Time: 23:14 09/21 22:29 Order name: Cardiac monitoring; Complete Time: 23:14 09/21 22:29 Order name: EKG - Nurse/Tech; Complete Time: 23:14 kb 06 22:29 Order name: IV Saline Lock - Large Bore; Complete Time: 23:14 kb 06 22:29 Order name: Labs collected and sent; Complete Time: 23:14 kb 0608 22:29 Order name: O2 Per Protocol; Complete Time: 23:14 kb 06 22:29 Order name: O2 Sat Monitoring; Complete Time: 23:14 kb 06 22:29 Order name: Vital Signs; Complete Time: 23:14 kb EC:23 Rate is 69 beats/min. Rhythm is regular. QRS Lincoln is Normal. SD interval is normal at kb 186 msec. QRS interval is normal at 92 msec. QT interval is normal at 398 msec. Administered Medications: 23:14 Drug: Cefepime IVPB 2 grams IVPB at 200 ml/hr once over 30 mins; (mix in NS 100 mL) [facility] Route: IVPB; Rate: 200 ml/hr; Infused Over: 30 mins; Site: right antecubital; 23:43 Follow up: Response: No adverse reaction; IV Status: Completed infusion; IV Intake: cm10 100ml 23:14 Drug: morphine IVP or IV 4 mg IVP once over 4 mins Route: IVP; Infused Over: 4 mins; [facility] Site: right antecubital; 23:14 Drug: Ondansetron IVP 4 mg IVP once; over 2 minutes Route: IVP; Site: right antecubital;[facility] 23:14 Drug: NS 0.9% IV 500 ml IV at bolus once Route: IV; Rate: bolus; Site: right 4 antecubital; 23:43 Follow up: Response: No adverse reaction; IV Status: Completed infusion; IV Intake: cm10 500ml 09/22 00:29 Drug: vancoMYCIN IVPB 1 grams IVPB once over 2 hrs Route: IVPB; Infused Over: 2 hrs; 4 Site: right antecubital; Disposition: 09/21 23:04 Co-signature as Attending Physician, Duglas Giraldo MD I reviewed the patient's care rn provided by Advanced Practice Provider \\T\\ agree w/ the diagnosis \\T\\ care plan. I personally saw the pt \\T\\ performed a substantive portion of the visit, incldng all aspects of the (History/Exam/Medical Decision Making). PA/FINANCIAL REPORT SERVICE SALES AGENT's history reviewed, patient interviewed, and examined. HPI: Patient reports 2 and half months of pain to inferior portion of the head of penis with swelling, today noticed that prosthesis poked through the skin and now is exposed and reports drainage. 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 Sticks out approximately 2 inches. Purulence noted at site of perforation and urethral meatus I agree with assessment and care plan and confirm the diagnosis (es) above. Disposition Summary: 09/22/23 22:43 Transfer Ordered Notes: Transfer Location: [facility] kb Reason: Higher level of care kb Condition: Stable kb Problem: new kb Symptoms: are unchanged kb Accepting Physician: Dr Jesus(09/23/23 01:25) jb4 Diagnosis - Penile prosthesis perforation kb Forms: - Medication Reconciliation Form kb - SBAR form kb Signatures: Dispatcher [employer] EDMS Ingris Dasilva, FACILITIES ENGINEERING MANAGER-C FACILITIES ENGINEERING MANAGER-Ckb Duglas Giraldo MD MD rn Bryson, James, RN RN jb4 Dyan Robb RN cm10 Corrections: (The following items were deleted from the chart) 23:52 22:43 Dr franky wilkins 09/22 01:25 09/21 23:52 Dr Ann Marie wilkins jb4
[2023-09-22 23:11] LABS: Absolute Lymphocytes (CBC) 2.2 K/uL (0.7-4.9); Absolute Monocytes 0.8 K/uL (0.1-1.3); Absolute Neutrophil 5.6 K/uL (1.8-8.0); Basophils % 0.5 % (0-1.3); Eosinophils % 0.5 % (0-4.4); Hematocrit 28.2 % (39.6-49.0); Hemoglobin 9.4 g/dL (13.6-17.9); Lymphocytes % 25.6 % (15.3-44.8); MCH 32.8 pg (27.0-35.0); MCHC 33.2 g/dL (32.0-36.0); MCV 98.8 fL (80-100); MPV 7.9 fL (7.6-11.3); Monocytes % 9.6 % (3.3-12.3); Neutrophils % 63.8 % (41.7-73.7); Platelets 275 thou/uL (152-406); RBC Red Blood Cell Count 2.85 M/uL (4.33-5.43); Red Cell Distribution Width 15.3 % (12.1-15.2)
[2023-09-22 23:29] LABS: Albumin 2.7 g/dL (3.4-5.0); Albumin/Globulin Ratio 0.5 (1.1-1.8); Anion Gap 8.5 mEq/L (5.0-15.0); Bilirubin Total 0.7 mg/dL (0.2-1.0); Globulin 5.6 g/dL (2.3-3.5); Potassium 4.5 mEq/L (3.5-5.1); Protein, Total 8.3 g/dL (6.4-8.2)
[2023-09-23] MEDS ORDERED: NA CHLORIDE 0.9% 250 ML ONE (00:09)
[2023-09-23] MEDS ORDERED: VANCOMYCIN 1 GM/VIAL ONE (00:09)
[2023-09-23 01:36] VITALS: BP 143/55; TEMP 98.2; O2SAT 98
--- NOTE | 2023-09-23 15:27 | EKG ---
Test Date: 2023-09-22 Test Time: 22:57:40 Snow Removal Supervisor: VARUN MEASUREMENT RESULTS: Intervals: Rate: 69 ND: 186 QRSD: 92 QT: 372 QTc: 398 Thompson: P: 54 ND: 186 QRS: 63 T: 72 INTERPRETIVE STATEMENTS: Normal sinus rhythm Normal ECG Compared to ECG 10/08/2020 10:24:58 Sinus bradycardia no longer present First degree AV block no longer present Electronically Signed On 09-23-23 15:26:58 CDT by Juan Jose Fuentes
== END 2023-09-23 01:25 | disposition short-term general hospital (02) ==
LOC: ER 22:18
DX: T83.490A Other mechanical complication of implanted penile prosthesis, initial encounter (principal)
CPT/HCPCS: 96365; 93005; 87040 ×2; 85025; 36415; 83605; 80053; 96375; 99284; J0692; J2405; J7050; J7040

== ENCOUNTER 2024-06-17 06:20 | Day surgery (SDC) | payer OTHER ==
[2024-06-03 09:13] LABS: Anion Gap 5.7 mEq/L (5.0-15.0); Potassium 4.7 mEq/L (3.5-5.1)
--- NOTE | 2024-06-03 09:13 | RAD REPORT ---
Procedure: Chest Pa And Lat (2 Views) HISTORY: Preop for prostate surgery. Hypertension COMPARISON: 2020 FINDINGS: The lungs appear clear of acute infiltrate.. Lungs are mildly to moderately hyperaerated. No significant pleural effusion noted. The heart is normal size. IMPRESSION: COPD without visualization of an acute abnormality.
[2024-06-03 09:15] LABS: Absolute Lymphocytes (CBC) 2.3 K/uL (0.7-4.9); Absolute Monocytes 0.7 K/uL (0.1-1.3); Absolute Neutrophil 2.6 K/uL (1.8-8.0); Basophils % 0.6 % (0-1.3); Eosinophils % 0.7 % (0-4.4); Hematocrit 33.8 % (39.6-49.0); Hemoglobin 11.7 g/dL (13.6-17.9); Lymphocytes % 39.8 % (15.3-44.8); MCH 33.4 pg (27.0-35.0); MCHC 34.5 g/dL (32.0-36.0); MCV 96.7 fL (80-100); MPV 9.4 fL (7.6-11.3); Monocytes % 12.7 % (3.3-12.3); Neutrophils % 46.2 % (41.7-73.7); Nucleated Red Blood Cells % 0.2 % (0-0); Platelets 147 thou/uL (152-406)
[2024-06-03 09:16] LABS: PT Prothrombin Time 11.3 SECONDS (9.4-12.5); Protime INR 1.08
[2024-06-17] MEDS: Ringers Lactate 1,000 ML IV ONE (06:40)
[2024-06-17] MEDS ORDERED: FENTANYL CITR 100 MCG/2 ML ONE (07:02)
[2024-06-17] MEDS ORDERED: propofoL 200 MG/20 ML VIAL IV ONE (07:02)
[2024-06-17] MEDS ORDERED: LIDOCAINE 1% MPF 5 ML VIAL ONE (07:02)
[2024-06-17] MEDS: CEFEPIME 1 GM/VIAL ONE (07:17)
[2024-06-17] MEDS: GENTAMICIN 80 MG/100 ML BAG 160 MG/200 ML BAG IV ONE (07:30)
[2024-06-17] MEDS ORDERED: EPHEDRINE SULF 50 MG/ML VIAL ONE (07:51)
[2024-06-17] MEDS ORDERED: ONDANSETRON 4 MG/2 ML VIAL ONE (07:52)
[2024-06-17] MEDS ORDERED: dexAMETHasone 10 MG/ML VIAL ONE (07:52)
[2024-06-17] MEDS ORDERED: CODEINE 30MG/APAP 300MG TAB PO PRN (09:19)
[2024-06-17] MEDS ORDERED: PHENAZOPYRIDINE 100MG TAB PO ONE (09:28)
[2024-06-17] MEDS: PHENAZOPYRIDINE 100MG TAB PO ONE (09:31)
--- NOTE | 2024-06-17 09:34 | P.OP ---
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 He previously had an IPP and that eroded into his urethra requiring explantation at [facility]. Subsequent evaluation revealed the presence of a partially patent prostatic urethra from the prior greenlight PVP and evidence of detrusor dysfunction. However, to give the patient the best opportunity to be able to void as he was miserable with a catheter, plans for operative intervention were discussed. Procedure note: The patient was consented in the preoperative holding area before being transferred to the operative suite where general anesthesia was induced. He was given cefepime 1 g and gentamicin 160 mg IV antimicrobial prophylaxis. Pneumoboots were provided for DVT prophylaxis. He was placed in the lithotomy position, padded and secured to the table appropriately. His genitalia was prepped with Hibiclens after the urethral Noe catheter had been removed. He was then draped in standard fashion. The case was begun using a 22 Honduran rigid cystoscope to traverse the urethra and into the bladder with ease. Navigating through a prostatic urethra which while seated at the verumontanum, there was asymmetric intraurethral intrusion of lateral lobar hypertrophy largely emanating from the patient's right lateral wall. There was additionally some anterolateral overhang emanating from the left side of the prostate near the bladder neck. Upon entry into the bladder, there was evidence of some fibrinous mucus debris within. As a result, I irrigated his bladder with several 100 cc including a 60 cc catheter tip syringe to try to remove all of that fibrinous debris to decrease the risk of colonization of the implants. Once ostensibly clean, I then decompressed his bladder and remove the cystoscope replacing the visual obturator and 20 Honduran UroLift sheath via his urethra into his bladder. I then switched the visual obturator for a UroLift delivery device and a an implant. This was targeted at the left lateral wall near his the bladder neck a bout 1.5 to 2 cm distal to the bladder neck opening at around the 2 o'clock position. Sweeping the tissue anterolaterally and then elevating the tissue, the scope was angled at about a 45 degree angle and 15 degrees against the tissue before pulling the trigger to deployed the needle through the substance of the prostate. I then compressed the tissue completely delivering the needle to the capsular surface before pulling the trigger a second time deploying the capsular tab. I then pulled the trigger a third time completely retracting the needle and beginning to tension the suture. I then advanced the scope back toward the midline and 2 to 3 mm toward the bladder neck opening before pulling the trigger a fourth time deploying the urethral end piece which did nicely lateralized the tissue and lifted in that location on the left side. I then surveyed the channel created using a visual obturator before replacing the device with a new implant into his bladder. I then targeted this implant at the patient's right lateral wall anterolaterally at the bladder neck region. Again, 1.5 meters distal to the bladder neck opening on the right at around the 11 o'clock position, an additional implant was placed beautifully lateralizing the tissue in that location. Again survey of the channel revealed significant residual intruding tissue largely coming from the patient's right lateral wall asymmetrically displacing the channel. As a result I placed a third implant at the level of the verumontanum and the apex on the right at around the 9 o'clock position. Again I surveyed the channel and placed a fourth implant in the mid zone tissue between the apical and base implants. I then surveyed the channel created after 4 implants had been placed, and there was still slight asymmetric intrusion emanating from the patient's right lateral wall. So I placed a 5th implant this time more distally at the level of the verumontanum in order to ensure lateralization of the tissue in that location. At no point did I place any implants distal to the proximal mid aspect of the verumontanum. Again, I surveyed the channel created, and one of the implants placed in the mid zone of the prostate did seem to have pulled through and that both the capsular tab and the end piece were visible. So I placed the cystoscope back into his bladder and utilized a rigid grasper to grasp and remove the implant intact with both the capsular tab and urethral end piece as well as the suture attached. Again, surveying the channel created revealed residual mid prostatic adenomatous intrusion, largely owing to lack of successful prior implant in that location that pull-through. As a result, I utilized a UL2 ATC device to grasp that tissue and lateralize it significantly, excellently tacking the tissue off and now removing the previous adenomatous deviation of the channel that was observed before the case was begun. With all of the tissue nicely lateralized, I surveyed the channel again using a visual obturator, and there did appear to be slight overhang of the anterior lobe of the prostate owing to the lateralization of the tissue aggressively. As a result, I utilized a 7th UL2 implant to target that tissue at the bladder neck on the left, and a static position to the prior implant placed on that side, at around the 1 o'clock position, and I was able to beautifully elevate the tissue in that location creating a beautiful widely patent channel from the verumontanum all the way into the bladder neck with absolutely no obstruction visible with the bladder decompressing. Minimal h ematuria was noted. As a result, I filled his bladder with saline before placing a 20 Honduran Noe catheter into his bladder with ease. I placed 15 cc of sterile water in the balloon and the catheter did drain clear to light pink urine. This was connected to a leg bag and the patient was taken out of the lithotomy position. He was then awakened from general anesthesia before being transferred to a stretcher. He was then transferred to the recovery room in good condition. Complications: None Discharge disposition: He should be given a voiding trial tomorrow morning. He may remove the catheter at home at 7 AM, but if he is uncomfortable doing so, he should come by the office first thing in the morning. Otherwise, he should come by the office between 1 to 3 PM for bladder scan postvoid residual assessment to ensure he is emptying adequately or to replace the catheter as necessary given his pre- existing detrusor dysfunction. He should continue the antimicrobials provided preoperatively. Subsequent follow-up should be established in about 1 month's time per routine. Findings and Operative Technique
[2024-06-17 11:25] VITALS: BP 127/51; TEMP 97.1; O2SAT 97
== END 2024-06-17 10:25 | disposition home or self-care (01) ==
LOC: OR 06:20
PROVIDERS: ATTEND Urology
PROC: 0T7D8DZ Dilation of Urethra with Intraluminal Device, Via Natural or Artificial Opening Endoscopic (ICD-10-PCS; principal; 2024-06-17 07:30)
DX: N40.1 Benign prostatic hyperplasia with lower urinary tract symptoms (principal); N13.8 Other obstructive and reflux uropathy; R33.9 Retention of urine, unspecified; N32.81 Overactive bladder; N31.8 Other neuromuscular dysfunction of bladder
CPT/HCPCS: 87088; 85025; 87086; 80048; 36415; 85610; 87077 ×2; 87186 ×2; 71046; 52441; 52442 ×5; J2704; J2003; J3010; J1100; J2405; J7120; J1580; J0692

== ENCOUNTER 2024-06-30 12:48 | Inpatient (IN) | payer OTHER ==
[2024-06-26 15:34] LABS: Absolute Lymphocytes (CBC) 2.1 K/uL (0.7-4.9); Absolute Monocytes 0.6 K/uL (0.1-1.3); Absolute Neutrophil 3.1 K/uL (1.8-8.0); Basophils % 0.7 % (0-1.3); Eosinophils % 0.6 % (0-4.4); Hemoglobin 11.4 g/dL (13.6-17.9); Lymphocytes % 36.2 % (15.3-44.8); MCH 33.8 pg (27.0-35.0); MCHC 34.6 g/dL (32.0-36.0); MCV 97.7 fL (80-100); MPV 8.8 fL (7.6-11.3); Monocytes % 9.6 % (3.3-12.3); Neutrophils % 52.9 % (41.7-73.7); Nucleated Red Blood Cells % 0.1 % (0-0); Platelets 154 thou/uL (152-406); RBC Red Blood Cell Count 3.38 M/uL (4.33-5.43); Red Cell Distribution Width 15.3 % (12.1-15.2)
[2024-06-26 15:37] LABS: PT Prothrombin Time 11.8 SECONDS (10-13.0); PTT, Activated Partial Thromb 31.5 SECONDS (27.2-37.4); Protime INR 1.04
[2024-06-26 15:45] LABS: Anion Gap 8.7 mEq/L (5.0-15.0); Potassium 4.7 mEq/L (3.5-5.1)
--- NOTE | 2024-06-27 14:40 | EKG ---
Test Date: 2024-06-26 Test Time: 14:40:10 Refrigerating Technician: DEBORAH MEASUREMENT RESULTS: Intervals: Rate: 79 RI: 216 QRSD: 100 QT: 350 QTc: 401 Pickrell: P: 77 RI: 216 QRS: 48 T: 66 INTERPRETIVE STATEMENTS: Sinus rhythm with 1st degree AV block Possible Left atrial enlargement Septal infarct, age undetermined Abnormal ECG Compared to ECG 09/22/2023 22:57:40 First degree AV block now present Myocardial infarct finding now present Electronically Signed On 06-27-24 14:39:43 CDT by Juan Jose Fuentes
[2024-06-30] MEDS: NA CHLORIDE 0.9% 500 ML ONE (13:40)
[2024-06-30] MEDS ORDERED: HEPARIN 10,000 UNIT/10 ML VIAL IV ONE (14:56)
[2024-06-30] MEDS ORDERED: LIDOCAINE 1% 20 ML MDV ONE (14:56)
[2024-06-30] MEDS ORDERED: HEPARIN 5000 UNIT/ML 1 ML VIAL ONE (14:57)
[2024-06-30] MEDS ORDERED: CLOPIDOGREL 75 MG TABLET ONE (14:57)
[2024-06-30] MEDS ORDERED: ATROPINE SULF 1 MG/10 ML SYR IV ONE (14:57)
[2024-06-30] MEDS ORDERED: MIDAZOLAM HCL 2 MG/2 ML INJ ONE (14:57)
[2024-06-30] MEDS ORDERED: VERAPAMIL HCL 10 MG/4 ML VIAL IV ONE (14:57)
[2024-06-30] MEDS ORDERED: ASPIRIN 325 MG TAB ONE (14:58)
[2024-06-30] MEDS ORDERED: TICAGRELOR 90 MG TABLET PO ONE (14:58)
[2024-06-30] MEDS ORDERED: FENTANYL CITR 100 MCG/2 ML ONE (14:58)
[2024-06-30] MEDS ORDERED: HEPA 1000U/500MLS 1,000 UNIT/500 ML BAG IV ONE (15:03)
[2024-06-30] MEDS: Phenylephrine HCl 10 MG/ML 1 ML VIAL ONE (18:22)
[2024-06-30] MEDS: ONDANSETRON 4 MG/2 ML VIAL ONE (19:00)
--- NOTE | 2024-06-30 20:13 | OP ---
Date of Procedure: 06/30/2024 Surgeon: RUSS CONNOLLY Procedures Performed: 1. Selective coronary angiogram. 2. Percutaneous coronary intervention of severe mid left circumflex stenosis, used 4.0 x 20 mm Synerg y drug-eluting stent. Indication: Unstable angina with abnormal stress test. Access: Right radial artery 6-Czech, closed with TR band. Complications: None. Bleeding: Less than 50 mL. Anesthesia: Total sedation time was 1 hour, used fentanyl and versed. Description Of Procedure: After risks, benefits, and alternatives were explained, patient agreed to procedure and signed informed consent. The patient was brought into cardiac catheterization laborato , prepped and draped in sterile fashion. Then, I accessed right radial artery using pediatric micr opuncture kit, placed 6-Czech Slender sheath and took a 5-Czech [place] 4 catheter into aortic root, engaged left main and the right coronary artery, took standard views and then gave systemic heparin t o assure ACT level above 250 throughout the procedure and loaded with 180 mg of Brilinta and 325 mg a spirin, and took 6-Czech EBU 4 guide into the aortic root over a J-wire, engaged left main and took the Runthrough wire into the left main and left circumflex passing the stenosis. Using a 4.0 balloo n, lesion expanded very well and pre-dilated and then I took a 4.0 x 20 mm Synergy drug-eluting stent across the area of stenosis. Excellent expansion. No complications at the end. Wire was removed. Final angiogram was satisfactory and I removed the catheter and the sheath and placed TR band with g ood hemostasis. Findings: 1. Left main: Very large and normal. 2. LAD: Very large and normal. Normal diagonal branches. 3. Left circumflex: Very large. It is a 4.[address] and it is codominant. In the mid segment, there is 80% to 90% ulcerative plaque, status post successful PCI using 4.0 x 20 mm Syn ergy drug-eluting stent. 4. RCA: Mid 30% and it is a codominant circulation. Conclusions: 1. Severe mid left circumflex stenosis, which is a culprit status post successful PCI as above. 2. Mild coronary artery disease elsewhere. Recommendations: Brilinta, aspirin, high-dose statin, to quit smoking. SR/MODL Voice ID: [id number] Report ID: [id number]
[2024-06-30] MEDS ORDERED: IPRATROPIUM BROM 0.5MG/2.5ML NEB PRN (20:16)
[2024-06-30] MEDS ORDERED: ALBUTEROL 2.5 MG/3 ML NEB SOL NEB PRN (20:16)
[2024-06-30] MEDS ORDERED: ONDANSETRON 4 MG/2 ML VIAL IV PRN (20:16)
--- NOTE | 2024-06-30 20:24 | P.HP ---
Certification for Inpatient Patient admitted to: Observation With expected LOS: <2 Midnights Practitioner: I am a practitioner with admitting privileges, knowledge of patient current condition, hospital course, and medical plan of care. Services: Services provided to patient in accordance with Admission requirements found in Title 42 Section 412.3 of the Code of Federal Regulations Patient History Date of Service: 06/30/24 Reason for admission: post cath hypotension History of Present Illness: Patient is a 83 year old male with a long history of tobacco smoking, severe peripheral vascular disease and CAD. He underwent cardiac cath today with PCI with KIZZY to Mid Lcx vessel. He is being admitted for post cath hypotension. Patient is alert and awake. Borderline BP with SBP of 106 mmHG. Allergies No Known Allergies Allergy (Verified 06/26/24 14:26) Home Medications: Aspirin [Aspirin EC 81 MG] 81 mg PO DAILY #30 tablet. 06/11/19 Albuterol Inhaler [Ventolin Inhaler*] 2 puff IH Q6H PRN 06/03/24 Calcium Carb/D3/Magnesium/Zinc [Gopi Mag Zinc-D Tablet] 1 each PO DAILY 06/03/24 Fluticasone/Vilanterol [Breo Ellipta 200-25 Mcg Inhalr] 1 puff IN DAILY 06/03/24 Gabapentin 3 tab PO BEDTIME 06/03/24 Guaifenesin 400 mg PO DAILY 06/03/24 Ibuprofen 3 tab PO DAILY PRN 06/03/24 Linaclotide [Linzess] 145 mcg PO DAILY 06/03/24 Nitroglycerin 0.4 mg SL DAILY PRN 06/03/24 Simvastatin [Zocor] 20 mg PO BEDTIME 06/03/24 Codeine/APAP [Tylenol W/Codeine #3 tab] 1 tab PO Q6HP PRN #15 tab 06/17/24 lisinopriL [Lisinopril] 20 mg PO BID 06/17/24 - Past Medical/Surgical History Diabetic: No -: HTN -: leg cramps -: bilateral knee surgery -: Appendectomy -: stomach surgery -: hernia -: aneurysm - Family History Father -: Heart disease Notes: pancreratic cancer Mother -: Heart disease, Diabetes, Stroke - Social History Alcohol use: Yes CD- Drugs: No Caffeine use: Yes Physical Examination - Vital Signs Temperature: 97.0 F Blood Pressure: 124/78 Pulse: 86 Respirations: 16 - Physical Exam General: Alert, In no apparent distress HEENT: Atraumatic, Normocephalic Neck: Supple Respiratory: Clear to auscultation bilaterally, Normal air movement Cardiovascular: No edema, Normal pulses, Regular rate/rhythm, Normal S1 S2 Neurological: Normal speech Assessment and Plan - Problems (Diagnosis) (1) S/P cardiac cath Current Visit: Yes Status: Acute (2) Hypotension Current Visit: Yes Status: Acute (3) BPH (benign prostatic hyperplasia) Current Visit: No Status: Chronic Qualifiers: (4) COPD (chronic obstructive pulmonary disease) Current Visit: No Status: Chronic Qualifiers: (5) GERD (gastroesophageal reflux disease) Current Visit: No Status: Chronic (6) Nicotine dependence Current Visit: No Status: Chronic Qualifiers: - Plan Assessment Patient is a 83 year old male being admitted for post cath hypotension. He just had PCI with KIZZY to Lcx vessel. Cardiology recommended overnight stay in ICU for hemodynamic monitoring Post cath hypotension CAD S/P PCI with KIZZY BPH PAD Tobacco smoking PLAN: Patient is in ICU for hemodynamic monitoring Hold off on vasopressors DAPT and high intensity statin Resume rest of home medications upon reconciliation - Advance Directives Does patient have a Living Will: No Does patient have a Durable POA for Healthcare: No
[2024-06-30] MEDS: ATORVASTATIN 80 MG TAB PO SCH (21:08)
[2024-06-30] MEDS ORDERED: GLUCAGON 1 MG/VIAL IM PRN (21:08)
[2024-06-30] MEDS ORDERED: D10W 125 ML IV PRN (21:08)
[2024-06-30] MEDS: TICAGRELOR 90 MG TABLET PO SCH (21:08)
[2024-06-30] MEDS: NA CHLORIDE 0.9% 1,000 ML IV SCH (21:09)
[2024-06-30 22:02] VITALS: BMI 20.7
[2024-07-01 06:28] LABS: Absolute Eosinophils 0.1 K/uL (0-0.5); Absolute Lymphocytes (CBC) 1.9 K/uL (0.7-4.9); Absolute Monocytes 0.6 K/uL (0.1-1.3); Basophils % 0.7 % (0-1.3); Eosinophils % 1.3 % (0-4.4); Hematocrit 29.4 % (39.6-49.0); Hemoglobin 10.2 g/dL (13.6-17.9); Lymphocytes % 41.7 % (15.3-44.8); MCH 33.5 pg (27.0-35.0); MCHC 34.6 g/dL (32.0-36.0); MCV 96.8 fL (80-100); MPV 8.7 fL (7.6-11.3); Monocytes % 12.6 % (3.3-12.3); Neutrophils % 43.7 % (41.7-73.7); Nucleated Red Blood Cells % 0.1 % (0-0); Platelets 126 thou/uL (152-406); RBC Red Blood Cell Count 3.04 M/uL (4.33-5.43)
[2024-07-01 06:37] LABS: PT Prothrombin Time 12.4 SECONDS (10-13.0); PTT, Activated Partial Thromb 26.1 SECONDS (27.2-37.4); Protime INR 1.09
[2024-07-01 06:48] LABS: Anion Gap 7.2 mEq/L (5.0-15.0); Phosphorus 2.9 mg/dL (2.5-4.9); Potassium 4.2 mEq/L (3.5-5.1)
[2024-07-01] MEDS: INSULIN REGULAR (HUMAN) 100 UNIT/ML SQ SCH (07:30)
[2024-07-01] MEDS: ASPIRIN 81 MG CHEWABLE TABLET PO SCH (08:01)
[2024-07-01 10:07] VITALS: BP 99/47; O2SAT 63
[2024-07-01 10:34] VITALS: TEMP 98.6
--- NOTE | 2024-07-01 10:45 | P.DS ---
Discharge Date: 07/01/24 Disposition: ROUTINE DISCHARGE Discharge Condition: FAIR Reason for Admission: post cath hypotension Brief History of Present Illness: Patient is a 83 year old male with a long history of tobacco smoking, severe peripheral vascular disease and CAD. He underwent cardiac cath today with PCI with KIZZY to Mid Lcx vessel. He is being admitted for post cath hypotension. Patient is alert and awake. Borderline BP with SBP of 106 mmHG. Hospital Course: Patient was supposed to get an echocardiogram prior to leaving. Seen by senior revenue accountant Dr. Abiel kong. Patient was cursing at the staff and wanting to go AGAINST MEDICAL ADVICE. Went ahead and called in his prescriptions. Proceed with discharge. Vital Signs/Physical Exam: Temp Pulse Resp BP Pulse Ox 98.6 F 63 16 99/47 L 95 07/01/24 08:00 07/01/24 09:00 07/01/24 09:00 07/01/24 09:00 07/01/24 07:00 General: Alert, In no apparent distress, Oriented x3 Laboratory Data at Discharge: WBC 4.50 thou/uL (4.3-10.9) 07/01/24 06:10 Hgb 10.2 g/dL (13.6-17.9) L 07/01/24 06:10 Hct 29.4 % (39.6-49.0) L 07/01/24 06:10 Plt Count 126 thou/uL (152-406) L 07/01/24 06:10 PT 12.4 SECONDS (10-13.0) 07/01/24 06:10 INR 1.09 07/01/24 06:10 APTT 26.1 SECONDS (27.2-37.4) L 07/01/24 06:10 Sodium 137 mEq/L (136-145) 07/01/24 05:41 Potassium 4.2 mEq/L (3.5-5.1) 07/01/24 05:41 BUN 21 mg/dL (7-18) H 07/01/24 05:41 Creatinine 0.89 mg/dL (0.70-1.30) 07/01/24 05:41 Glucose 100 mg/dL (74-106) 07/01/24 05:41 Phosphorus 2.9 mg/dL (2.5-4.9) 07/01/24 05:41 Magnesium 2.0 mg/dL (1.6-2.4) 07/01/24 05:41 Triglycerides 73 mg/dL (<150) 07/01/24 05:41 Cholesterol 146 mg/dL (<200) 07/01/24 05:41 HDL Cholesterol 42 mg/dL (40-60) 07/01/24 05:41 Cholesterol/HDL Ratio 3.48 07/01/24 05:41 Home Medications: Aspirin [Aspirin EC 81 MG] 81 mg PO DAILY #30 tablet. 06/11/19 Albuterol Inhaler [Ventolin Inhaler*] 2 puff IH Q6H PRN 06/03/24 Calcium Carb/D3/Magnesium/Zinc [Gopi Mag Zinc-D Tablet] 1 each PO DAILY 06/03/24 Fluticasone/Vilanterol [Breo Ellipta 200-25 Mcg Inhalr] 1 puff IN DAILY 06/03/24 Gabapentin 3 tab PO BEDTIME 06/03/24 Guaifenesin 400 mg PO DAILY 06/03/24 Linaclotide [Linzess] 145 mcg PO DAILY 06/03/24 Nitroglycerin 0.4 mg SL DAILY PRN 06/03/24 Codeine/APAP [Tylenol #3*] 1 tab PO Q6HP PRN #15 tab 06/17/24 Atorvastatin Calcium [Lipitor] 80 mg PO BEDTIME #30 tab 07/01/24 Ticagrelor [Brilinta*] 90 mg PO BID #60 tab 07/01/24 New Medications: Ticagrelor [Brilinta*] 90 mg PO BID #60 tab Atorvastatin Calcium [Lipitor] 80 mg PO BEDTIME #30 tab Physician Discharge Instructions: -Pt wanted to leave AMA prior to repeat Echocardiogram that was ordered per Cardiology; we discharged him so he can get his prescriptions as he had a stent placed. -Recc follow-up with PCP in 1 to 2 weeks -Recc follow-up with Cardiology in 1 to 2 weeks -Return to the emergency room when symptoms worsen PROBLEM: Myocardial infarction GOAL: Clear understanding of disease process INSTRUCTIONS: Diet: Low salt, low fat Activity: Fall precautions DME DME: Date Ordered: Name of Company: [employer] Services Needed: None Name of Company: Date or Referral: IMMUNIZATION Influenza Vaccine Indicated: Influenza Vaccine Given: Date Given: Pneumonia Vaccine Indicated: Pneumonia Vaccine Given: Date Given: Diet: AHA Activity: Fall precautions Followup: ABAD TIRADO [Primary Care Provider] - Time spent managing pt's care (in minutes): 25
--- NOTE | 2024-07-01 10:48 | P.CNS ---
Date of Consult: 07/01/24 Chief Complaint: post cath hypotension History of Present Illness: Patient was admitted s/p PCI of LCX, developed hypotension after procedure, most likely vagal response, he denies chest pain, no SOB, report having low BP in the past and he knows how to deal with and wants to go home. Allergies No Known Allergies Allergy (Verified 06/26/24 14:26) Home medications list reviewed: Yes Home Medications: Aspirin [Aspirin EC 81 MG] 81 mg PO DAILY #30 tablet. 06/11/19 Albuterol Inhaler [Ventolin Inhaler*] 2 puff IH Q6H PRN 06/03/24 Calcium Carb/D3/Magnesium/Zinc [Gopi Mag Zinc-D Tablet] 1 each PO DAILY 06/03/24 Fluticasone/Vilanterol [Breo Ellipta 200-25 Mcg Inhalr] 1 puff IN DAILY 06/03/24 Gabapentin 3 tab PO BEDTIME 06/03/24 Guaifenesin 400 mg PO DAILY 06/03/24 Linaclotide [Linzess] 145 mcg PO DAILY 06/03/24 Nitroglycerin 0.4 mg SL DAILY PRN 06/03/24 Codeine/APAP [Tylenol #3*] 1 tab PO Q6HP PRN #15 tab 06/17/24 Atorvastatin Calcium [Lipitor] 80 mg PO BEDTIME #30 tab 07/01/24 Ticagrelor [Brilinta*] 90 mg PO BID #60 tab 07/01/24 - Past Medical/Surgical History Diabetic: No -: HTN -: leg cramps -: bilateral knee surgery -: Appendectomy -: stomach surgery -: hernia -: aneurysm - Family History Father Medical History: Heart disease Notes: pancreratic cancer Mother Medical History: Heart disease, Diabetes, Stroke - Social History Smoking Status: Current every day smoker Alcohol use: Yes CD- Drugs: No Caffeine use: Yes Review of Systems 10-point ROS is otherwise unremarkable Physical Examination Temp Pulse Resp BP Pulse Ox 98.6 F 63 16 99/47 L 95 07/01/24 08:00 07/01/24 09:00 07/01/24 09:00 07/01/24 09:00 07/01/24 07:00 General: Alert, In no apparent distress HEENT: Atraumatic, PERRLA, Mucous membr. moist/pink, EOMI, Sclerae nonicteric Neck: Supple, 2+ carotid pulse no bruit, No LAD, Without JVD or thyroid abnormality Respiratory: Clear to auscultation bilaterally, Normal air movement Cardiovascular: Regular rate/rhythm, Normal S1 S2 Gastrointestinal: Normal bowel sounds, No tenderness Musculoskeletal: No tenderness Integumentary: No rashes Neurological: Normal gait, Normal speech, Normal tone, Normal affect Lymphatics: No axilla or inguinal lymphadenopathy Laboratory Data (last 24 hrs) 07/01/24 07/01/24 07/01/24 06:10 06:10 05:41 WBC 4.50 Hgb 10.2 L Hct 29.4 L Plt Count 126 L PT 12.4 INR 1.09 APTT 26.1 L Sodium 137 Potassium 4.2 BUN 21 H Creatinine 0.89 Glucose 100 Phosphorus 2.9 Magnesium 2.0 Triglycerides 73 Cholesterol 146 HDL Cholesterol 42 Cholesterol/HDL Ratio 3.48 06/30/24 Unknown WBC Hgb Hct Plt Count PT INR APTT Sodium Potassium BUN Creatinine Glucose Phosphorus Cancelled Magnesium Cancelled Triglycerides Cholesterol HDL Cholesterol Cholesterol/HDL Ratio - Problems (1) S/P cardiac cath Current Visit: Yes Status: Acute Plan: PCI of LCX, denies chest pain continue ASA and Brilinta patient can be discharged.
--- NOTE | 2024-07-02 12:35 | EKG ---
Test Date: 2024-06-30 Test Time: 18:25:00 Court Liaison: CHAPARRITA MEASUREMENT RESULTS: Intervals: Rate: 101 NH: 226 QRSD: 92 QT: 360 QTc: 466 [place]: P: 79 NH: 226 QRS: 70 T: 75 INTERPRETIVE STATEMENTS: Sinus tachycardia with 1st degree AV block Nonspecific ST abnormality Abnormal ECG Compared to ECG 06/26/2024 14:40:10 ST (T wave) deviation now present Sinus rhythm no longer present Myocardial infarct finding no longer present Electronically Signed On 07-02-24 12:26:52 CDT by Juan Jose Fuentes
== END 2024-07-01 10:55 | disposition home or self-care (01) | DRG 322 ==
LOC: CCL 12:48 → 3RD-ICU 16:35
PROVIDERS: ADMIT Internal Medicine; ATTEND Hospitalist
PROC: 027034Z Dilation of Coronary Artery, One Artery with Drug-eluting Intraluminal Device, Percutaneous Approach (ICD-10-PCS; principal; 2024-06-30)
PROC: 4A023N7 Measurement of Cardiac Sampling and Pressure, Left Heart, Percutaneous Approach (ICD-10-PCS; 2024-06-30)
PROC: B2111ZZ Fluoroscopy of Multiple Coronary Arteries using Low Osmolar Contrast (ICD-10-PCS; 2024-06-30)
DX: I95.81 Postprocedural hypotension (principal); I73.9 Peripheral vascular disease, unspecified; K21.9 Gastro-esophageal reflux disease without esophagitis; J44.9 Chronic obstructive pulmonary disease, unspecified; N40.0 Benign prostatic hyperplasia without lower urinary tract symptoms; I25.10 Atherosclerotic heart disease of native coronary artery without angina pectoris; F17.210 Nicotine dependence, cigarettes, uncomplicated; R94.39 Abnormal result of other cardiovascular function study; Z79.82 Long term (current) use of aspirin; Z79.899 Other long term (current) drug therapy
CPT/HCPCS: 36415; 76937; 80048; 80061; 82947; 83605; 83735; 84100; 85025; 85347; 85610; 85730; 93005; 93454; 99152; C1725; C1893; C9600; J0461; J1644; J2003; J2250; J2371; J2405; J3010; J7030; J7040; Q9967